=== PATIENT | female | born 1960 | race Caucasian/White ===

== ENCOUNTER 2024-02-15 10:31 | Inpatient (IN) | payer OTHER, SELFPAY ==
[2024-02-15] VITALS (8 sets, daily range): BP systolic 126–178; BP diastolic 71–106; BMI 23.0; BMI 22.3
--- NOTE | 2024-02-15 03:42 | ED.GENMED ---
History of Present Illness
General
Chief Complaint: Flank Pain
Source: patient
Exam Limitations: none
Time Seen by Provider: 02/15/24 03:33
Nursing documentation reviewed up to this point in time: agreed with
Travel History
Have you had any contact with someone who has COVID-19?: No
Do you have any symptoms of coronavirus? Fever > 100 degrees, chills, cough, shortness of breath, sore throat, loss of taste or smell, muscle aches, or headache?: No
History of Present Illness
History of Present Illness:
This is a 63-year-old woman with history of hypertension, SVT, ulcerative colitis maintained on Humira every 2 weeks. History of osteoporosis maintained on every 6-month Prolia as well as history of seasonal allergies.
She complains of 2-week history of bilateral posterior lower flank pain that is worse at nighttime, seems to improve during the day.
She has had no UTI symptoms but was started on a course of Cipro 2 weeks ago for presumed UTI. She states she stopped the Cipro with onset of bilateral hand itching and urine culture returned negative for UTI.
She has continued with bilateral low back pain, nonradiating that has been much worse over the past 2 nights with inability to sleep. She denies fever nor chills, no nausea nor vomiting, no diarrhea or constipation.
No history of similar episodes in the past. She denies weakness or numbness, no leg pain, no rash.
No recent injury nor fall.
She states she had blood work done on , February 12 and was notified by her PCP that blood work was unremarkable. An ultrasound is scheduled for March 03.
She has been taking Tylenol arthritis for pain as well as occasional doses of Aleve. Tonight pain was much worse prompting ED visit.
Past History
Past History
ED Past Medical History: Arrthythmia (SVT), HTN, Other (Ulcerative colitis maintained on Humira every 2 weeks. Seasonal allergies, oral/herpes labialis maintained on daily Valtrex suppressive therapy.) and Other (Osteoporosis)
ED Past Surgical History: Orthopedic (ORIF right shoulder, bunionectomy) and Other (Inguinal hernia repair)
Social History
Tobacco: Non-smoker
Alcohol: None
Personal:
Living: with family
Employment: Employed
Family History
Family History: Other (Nonremarkable)
Phy Exam
Physical Exam
Physical Exam:
GENERAL: 63-year-old woman appears her stated age, awake and alert, appears in mild distress related to pain. Easily communicative. is accompanying.
EYE: anicteric
NECK: Supple, nontender, no meningismus, no significant adenopathy.
ENT: oral mucosa is moist. No rhinorrhea.
CARDIAC: Regular rate and rhythm. no murmur.
LUNGS: Clear breath sounds bilaterally, no acute respiratory distress, no wheezes/rales/rhonchi
ABDOMEN: Soft, nondistended, without focal tenderness, no r/g, no cvat. normoactive BS.
BACK: Mild to moderate tenderness bilateral thoracolumbar region. No midline bony tenderness.
NEUROLOGICAL: Alert and oriented x3, no focal neuro deficits. Gait is briones and steady.
SKIN: Warm and dry, normal color, skin intact. No rash.
MUSCULOSKELETAL: No C/C/E. peripheral pulses are full and equal b/l. No palpable tenderness.
PSYCH: Normal and appropriate interaction.
Course
Orders/Labs/Results
Orders:
Orders
02/15/24 03:40
CT Abd/pel Without Iv Or Oral Urgent
Comment:
Reason For Exam: R flank pain x 2 weeks, worse x 2 nights
02/15/24 03:45
Comprehensive Metabolic Panel Urgent
Lipase Urgent
Comment: ADD ON
Urinalysis Reflex To Culture Urgent
Date Specimen was Collected: 02/15/24
Time Specimen was Collected: 03:44
02/15/24 06:05
Ketorolac [Toradol] 30 mg .ROUTE .[facility]
Ketorolac [Toradol] 30 mg IV NOW STA
02/15/24 06:06
Add On- LAB Urgent
Tests Added?: lipase
02/15/24 06:13
CBC/With Diff [Complete Blood Count/With Diff] Urgent
02/15/24 06:20
CT Abd/pelvis W Iv Cont Urgent
Comment:
Reason For Exam: b/l back pain, adenopathy on plain CT
Abnormal Lab Results
02/15/24 02/15/24
03:45 06:13
RBC 3.77 L 10^6/uL
(4.20-5.40)
Hct 35.3 L %
(37.0-47.0)
MCH 33.4 H pg
(27.0-31.0)
Absolute Monos (auto) 0.9 H 10^3/uL
(0.1-0.6)
Monocytes % 11.8 H %
(1.7-9.3)
BUN 18 H mg/dl
(7-17)
Glucose 115 H mg/dl
(70-99)
Lipase 1009 H* U/L
(23-300)
02/15/24 06:13
02/15/24 03:45
Vital Signs
Initial and Last Documented VS:
Initial Vital Signs
Temp Pulse Resp BP Pulse Ox
98.2 F 82 20 178/106 98
02/15/24 03:24 02/15/24 03:24 02/15/24 03:24 02/15/24 03:24 02/15/24 03:24
Last Documented Vital Signs
Temp Pulse Resp BP Pulse Ox
98.2 F 78 14 144/87 98
02/15/24 03:24 02/15/24 06:01 02/15/24 06:01 02/15/24 06:01 02/15/24 06:01
MDM/Problems Addressed
Differential Diagnosis Includes:
Concern for thoracolumbar musculoskeletal pain, other consideration is renal colic. Less likely pyelonephritis especially with history of negative urine culture 2 weeks ago.
Will check CT
Will check U/A and CMP
Less likely ulcerative colitis related as patient abdomen is soft and nontender, she has had no GI symptoms.
Chronic conditions affecting care: HTN, Immunosuppressed and Other (Ulcerative colitis, chronically maintained on immunosuppressants)
*Radiology
Radiology exam reviewed: radiology read reviewed ( CT of the abdomen pelvis without contrast shows distended gallbladder with surrounding fluid versus gallbladder wall edema. There is innumerable oh hepatis as well as retroperitoneal lymph nodes
suspicious for metastatic disease.)
*Pulse Oximetry
Patient hypoxic: no
*Critical Care Note
Total Time (30-74mins, 75-104mins- exclusive of procedures): Not Applicable
Update Note
Update Note:
CMP is unremarkable as is urinalysis. Patient continues with moderate back pain thus we will trial an IV dose of Toradol.
Initial plain CT shows concern for possible cholecystitis with distended gallbladder with surrounding fluid versus gallbladder wall edema, there is also note of innumerable oh hepatis as well as retroperitoneal lymph nodes, suspicious for
metastatic disease. Neurologist recommends repeating images with IV contrast. There is no obstructing renal stone, appendix is normal, no bowel obstruction nor diverticulitis. Abdominal aorta is normal caliber.
Complete metabolic panel is unremarkable but will check lipase and will plan for CT abdomen pelvis with IV contrast.
Patient does note intermittent upper abdominal discomfort but no pain with meals, she has had no nausea nor vomiting.
02/15/2024 0729 AM
Lipase markedly elevated 1009. All other LFTs within normal limits.
CT with IV contrast again demonstrates innumerable enlarged abdominal and retroperitoneal lymph nodes, concerning for metastatic disease. There is also note of gallbladder inflammation, concerning for cholecystitis.
With intermittent episodes over the past 2 weeks, worse at nighttime and especially over the past 2 nights concern for gallstone pancreatitis, acute pancreatitis.
Will admit to hospitalist service, IV fluids, IV pain medication, IV antibiotics for cholecystitis.
Case discussed with hospitalist and request consult to GI.
GI has been notified via [place] text.
ED Attending Note
-
Portions of this chart may have been created with voice recognition software.� Occasional wrong word or��sound alike� substitutions may have occurred due to the inherent limitations of voice recognition software.
Discharge Plan
Departure
Patient Disposition: Admit
Date of Disposition: 02/15/24
Time of Disposition: 07:21
Admit to: Med/Surg
Admit to doctor: Keyla
Presentation/result/management discussed w/ accepting MD/DO: Hospitalist
Condition: Fair
Discharge Problem:
Acute gallstone pancreatitis, Acute cholecystitis, Abdominal lymphadenopathy
Prescriptions:
No Action
multivitamin Tablet
1 tab PO DAILY
valacyclovir 500 mg Tablet
500 mg PO DAILY
fiber Tablet
1 tab PO DAILY
metoprolol succinate 25 mg Tablet Extended Release 24 Hr
25 mg PO HS
loratadine [Claritin] 10 mg Tablet
10 mg PO DAILY
Humira 40 mg/0.8 mL Syringe Kit
40 mg SC Q2W
cholecalciferol (vitamin D3) [Vitamin D3] 125 mcg (5,000 unit) Tablet
125 mcg PO DAILY
Prolia 60 mg/mL Syringe
60 mg SC [id number]
PreserVision AREDS
1 cap PO DAILY
Referrals:
Padmaaj Harvey DO [Family Provider] -
Interventions
Interventions:
*Risk Screen - Suicide Last Done: 02/15/24 03:24
*General Assessment Last Done: 02/15/24 03:24
*Neglect/Abuse Screening Last Done: 02/15/24 03:24
ED- Fall Risk Assessment Last Done: 02/15/24 03:24
*ED COVID-19 Vaccine History Last Done: 02/15/24 03:24
LM-Hortru-Dehoqmyuso Assessment Last Done: 02/15/24 03:52
ED-Female Genitourinary Assessment Last Done: 02/15/24 03:52
Discharge Date and Time
Print Language: CYPRIOT
[2024-02-15 04:00] LABS: Urine Albumin Trace (Neg - Trace); Urine Bilirubin Negative (Negative); Urine Character Clear (Clear); Urine Color Yellow; Urine Glucose Negative (Negative); Urine Ketone Negative (Negative); Urine Leukocyte Negative (Negative); Urine Nitrite Negative (Negative); Urine Occult Blood Negative (Negative); Urine Urobilinogen Negative (Neg - 1+)
[2024-02-15 04:10] LABS: ALT (SGPT) 18 U/L (0-35); AST (SGOT) 30 U/L (14-36); Alkaline Phosphatase 78 U/L (38-126); Blood Urea Nitrogen 18 mg/dl (7-17); Calcium 9.8 mg/dl (8.4-10.2); Carbon Dioxide 26 mmol/L (22-30); Chloride 107 mmol/L (98-107); Estimated Creatinine Clearance 88 ml/min; Glucose 115 mg/dl (70-99); Sodium 139 mmol/L (135-145); Total Bilirubin 0.4 mg/dl (0.2-1.3); Total Protein 6.7 g/dl (6.3-8.2); eGFR > 60.00
[2024-02-15] MEDS: TORADOL 30 MG IV (06:13)
[2024-02-15 06:22] LABS: % Basophils 0.9 % (0-2); % Eosinophils 5.2 % (0-6); % Immature Granulocytes 0.1 % (0-0.5); % Lymphocytes 27.5 % (20.5-51.1); % Monocytes 11.8 % (1.7-9.3); % Neutrophils 54.5 % (42.2-75.2); Absolute Basophils 0.1 10^3/uL (0-0.2); Absolute Eosinophils 0.4 10^3/uL (0-0.7); Absolute Lymphocytes 2.1 10^3/uL (1.2-3.4); Absolute Monocytes 0.9 10^3/uL (0.1-0.6); Absolute Neutrophils 4.1 10^3/uL (1.4-6.5); Hematocrit 35.3 % (37.0-47.0); Hemoglobin 12.6 g/dL (12.0-16.0); Mean Corp Hgb Conc. 35.7 g/dL (33.0-37.0); Mean Corpuscular Hgb 33.4 pg (27.0-31.0); Mean Corpuscular Volume 93.6 fL (81.0-99.0); Mean Platelet Volume 8.6 fL (7.4-10.4); Nucleated Red Blood Cells % 0 %; Platelet Count 383 10^3/uL (130-400); Red Blood Cell Count 3.77 10^6/uL (4.20-5.40); Red Cell Dist. Width 11.8 % (11.5-14.5); White Blood Cell Count 7.5 10^3/uL (4.8-10.8)
[2024-02-15 06:40] LABS: Lipase 1009 U/L (23-300)
[2024-02-15] MEDS: NSS 1000 IV (07:53)
[2024-02-15] MEDS: MORPHINE SULFATE 2 MG IV (07:53)
[2024-02-15] MEDS: CEFOTAN 2000 MG IV (07:56)
--- NOTE | 2024-02-15 10:25 | HPS.HSE ---
Family Physician
-
Family Physician: Padmaja Harvey
Chief Complaint
-
Abdominal pain
History of Present Illness
63 y/o F with PMHx:
Ulcerative colitis
SVT
Essential hypertension
who p/w CC abd pain. The patient has had abdominal pain for 2 weeks. Initially it was in the right and left lower quadrants radiating to the back. More recently it has been epigastric and radiating through the upper quadrants to the back. She
has not had no associated vomiting, diarrhea, fevers, melena, hematochezia. She has had some chills. She reports a 10 pound unintentional weight loss in the last month. She also reports that she gets short of breath climbing a flight of stairs
but this has been going on for a while and is not acute. Denies headache, visual symptoms, neck stiffness, rash, dysuria, focal neurological deficits. Denies chest pain, palpitations.
Medical History
Past Medical History
Past Medical History: Reports Other (as per HPI)
Past Surgical History: Reports Other (N/A)
Social History
Tobacco: Non-smoker
Alcohol: Occasional
Drug: None
Family History
Family History: Not pertinent
Allergies / Home Medications
Allergies reflects when Allergies were last updated in [facility].
Home Medications with original date entered in [facility]
Allergy/Medication List:
Allergies
Allergy/AdvReac Type Severity Reaction Status Date / Time
ciprofloxacin [From Cipro] Allergy Itching Verified 02/15/24 03:24
Home Medications
PreserVision AREDS 1 cap PO DAILY 02/15/24
adalimumab 40 mg/0.8 mL subcutaneous syringe kit (Humira) 40 mg SC Q2W 02/15/24
cholecalciferol (vitamin D3) 125 mcg (5,000 unit) tablet (Vitamin D3) 125 mcg PO DAILY 02/15/24
denosumab 60 mg/mL subcutaneous syringe (Prolia) 60 mg SC [id number] 02/15/24
fiber 1 tab PO DAILY 02/15/24
loratadine 10 mg tablet (Claritin) 10 mg PO DAILY 02/15/24
metoprolol succinate 25 mg tablet,extended release 24 hr 25 mg PO HS 02/15/24
multivitamin 1 tab PO DAILY 02/15/24
valacyclovir 500 mg tablet 500 mg PO DAILY 02/15/24
Review of Systems
-
History Source: Patient
A 12 point ROS was completed and negative except as noted: Yes
Physical Exam
Vital Signs
Vital Signs
Temp Pulse Resp BP Pulse Ox
98.2 F 78 16 141/90 98
02/15/24 03:24 02/15/24 08:38 02/15/24 08:38 02/15/24 08:38 02/15/24 08:38
Physical Exam
General: Other (.)
Laboratory Results
-
02/15/24 06:13
02/15/24 03:45
Laboratory Results
Total Bilirubin 0.4 mg/dl (0.2-1.3) 02/15/24 03:45
AST 30 U/L (14-36) 02/15/24 03:45
ALT 18 U/L (0-35) 02/15/24 03:45
Alkaline Phosphatase 78 U/L (38-126) 02/15/24 03:45
Lipase 1009 U/L (23-300) H* 02/15/24 03:45
Impression/Plan
-
Gen: NAD, AAOx3.
Eyes: EOMI, PERRLA, no scleral icterus.
Neck: supple.
CV: RRR, +S1/S2, no m/r/g.
Resp: CTAB, no rales, wheezes, or rhonchi.
Abd: +BS, soft, LUQ TTP, ND
Skin: No rashes.
Neuro: CN 2-12 intact, non-focal.
Psych: Normal mood and affect.
CT A/P w/IV (no PO): There is extensive mesenteric and retroperitoneal lymphadenopathy worrisome for malignancy such as lymphoma or metastasis with hazy stranding throughout the mesentery. There is low-density gallbladder wall thickening which is 1
cm suggesting cholecystitis. There are no obstructing renal or ureteral calculi and there is no hydronephrosis or hydroureter there are 7 mm nonobstructing calculus in the lower pole of the right kidney and right-sided renal cysts measuring up to
3cm.
Abdominal pain:
-doubt acute cholecystitis with normal liver function tests, no right upper quadrant tenderness to palpation, no leukocytosis, no fever
-acute pancreatitis, LR @ 200cc/hr, check MRI abd/MRCP, check lipase in AM
-pt needs CT A/P with PO contrast. As pt had IV contrast today will check CT C/A/P with PO and IV contrast in AM.
-NPO except meds/sips
-further work up to be determined by results of imaging ordered.
-pain control (IV dilaudid PRN)
Other problems:
UC, holding home meds
Essential HTN/SVT: cont BB
FULL/Lovenox
[2024-02-15] MEDS: DILAUDID 0.5 MG IV ×3 (13:30→21:21)
[2024-02-15] MEDS: LR 1000 IV ×2 (13:35→20:04)
[2024-02-15] MEDS: LOVENOX 40 MG SC (17:22)
[2024-02-15] MEDS: TYLENOL 650 MG PO (20:04)
[2024-02-15] MEDS: ZOFRAN 4 MG IV (21:21)
[2024-02-15] MEDS: OCUFLOX 1 DROP OPHTH (21:24)
[2024-02-15] MEDS: TOPROL XL 25 MG PO (21:25)
[2024-02-16] MEDS: TYLENOL 650 MG PO (03:42)
[2024-02-16] MEDS: LR 1000 IV ×3 (06:21→12:40)
[2024-02-16 06:25] LABS: Hematocrit 34.5 % (37.0-47.0); Hemoglobin 12.1 g/dL (12.0-16.0); Mean Corp Hgb Conc. 35.1 g/dL (33.0-37.0); Mean Corpuscular Hgb 33.6 pg (27.0-31.0); Mean Corpuscular Volume 95.8 fL (81.0-99.0); Mean Platelet Volume 9.2 fL (7.4-10.4); Platelet Count 395 10^3/uL (130-400); Red Cell Dist. Width 11.8 % (11.5-14.5); White Blood Cell Count 6.4 10^3/uL (4.8-10.8)
[2024-02-16] MEDS: ZOFRAN 4 MG IV ×2 (06:25→11:40)
[2024-02-16 06:58] LABS: ALT (SGPT) 16 U/L (0-35); AST (SGOT) 41 U/L (14-36); Albumin 3.8 g/dl (3.5-5.0); Alkaline Phosphatase 71 U/L (38-126); Blood Urea Nitrogen 11 mg/dl (7-17); Calcium 9.1 mg/dl (8.4-10.2); Carbon Dioxide 23 mmol/L (22-30); Chloride 105 mmol/L (98-107); Estimated Creatinine Clearance 88 ml/min; Glucose 73 mg/dl (70-99); Lipase 228 U/L (23-300); Potassium 4.1 mmol/L (3.5-5.1); Sodium 134 mmol/L (135-145); Total Bilirubin 0.4 mg/dl (0.2-1.3); Total Protein 6.3 g/dl (6.3-8.2); eGFR > 60.00
[2024-02-16 08:02] VITALS: BP 143/75
[2024-02-16] MEDS: THERAGRAN 1 TABLET PO (08:15)
[2024-02-16] MEDS: OCUFLOX 1 DROP OPHTH ×3 (08:15→18:01)
[2024-02-16] MEDS: CLARITIN 10 MG PO (08:15)
[2024-02-16] MEDS: VALTREX 500 MG PO (08:15)
[2024-02-16] MEDS: OCUVITE SOFTGEL 1 CAP PO (08:15)
[2024-02-16] MEDS: VITAMIN D3 (cholecalciferol) 125 MCG PO (08:15)
[2024-02-16] MEDS: OMNIPAQUE 50 ML PO (08:22)
--- NOTE | 2024-02-16 09:09 | CM ---
Patient seen at bedside with present. Patient states that she lives in a 3 story home with no DME. Patient has been independent of ADL's and IADL's. Patient indicated that she has no past need for VN or supports. Patient PCP is Dr. Harvey
and she uses the [facility] in [place]. Patient does not anticipate any needs at discharge, patient signed up for Medicare part A but has yet to receive card. [facility] reviewed and provided for patient to read. CM will continue to follow for discharge
planning needs.
Plan; home with no needs anticipated.
[2024-02-16] MEDS: MORPHINE SULFATE 2 MG IV ×2 (14:11→19:47)
[2024-02-16 15:40] VITALS: BP 144/83
--- NOTE | 2024-02-16 16:26 | W.PN.HOSP.TC ---
Addendum entered and electronically signed by Alec Jones MD 02/16/24 17:51:
As per discussion with Dr. David Leo, [id number]: unless the lactate is very high hold off on the CTA. In the meantime, NPO except for ice chips and sips of clears to give patient some bowel rest. If patient looks worse tomorrow then a
diagnostic laparoscopy could be done, and some lymph nodes potentially could be obtained for tissue pathology.
Addendum entered and electronically signed by Alec Jones MD 02/16/24 17:00:
Clear Liquid Diet pending GI and surgery evaluation given possible colitis on imaging
Original Note:
Today's Communication/Plan
-
NPO after midnight for biopsy of lymph nodes with EUS tomorrow
Colitis on imaging -- will cover with Rocephin and Flagyl
Asked surgery and GI to take a look and see whether this may be ischemic colitis
Assessment / Plan
Assessment / Plan
Physical Exam
Gen: NAD, AAOx3
HEENT: Normocephalic
Neck: Supple
CV: RRR, +S1/S2, no m/r/g.
Resp: CTAB
Abd: +BS, soft, LUQ TTP, ND
Skin: Warm. Dry.
Neuro: Cranial Nerves 2 through 12 intact, non-focal.
Psych: Calm

Assessment/Plan
63 y/o F with past medical history of ulcerative colitis, SVT, and essential hypertension who presented reporting abdominal pain of a 2-week duration. Initially it was in the right and left lower quadrants radiating to the back. More recently it
had been epigastric and radiating through the upper quadrants to the back. She had not had any associated vomiting, diarrhea, fevers, melena or hematochezia. She had some chills. She reports a 10 pound unintentional weight loss in the last month.
She also reported chronic shortness of breath.
CT A/P w/IV (no PO): There is extensive mesenteric and retroperitoneal lymphadenopathy worrisome for malignancy such as lymphoma or metastasis with hazy stranding throughout the mesentery. There is low-density gallbladder wall thickening which is 1
cm suggesting cholecystitis. There are no obstructing renal or ureteral calculi and there is no hydronephrosis or hydroureter there are 7 mm nonobstructing calculus in the lower pole of the right kidney and right-sided renal cysts measuring up to
3cm.
Abdominal pain:
Extensive Abdominal Lymphadenopathy
-doubt acute cholecystitis with normal liver function tests, no right upper quadrant tenderness to palpation, no leukocytosis, no fever
-No acute pancreatitis on imaging -- but lipase was significantly elevated and patient did have abdominal pain on the left -- so LR IV fluids were given initially @ 200 cc/hr
-A repeat Lipase was previously ordered and has come down to normal
-Imaging so far including MRI Abdomen has shown no evidence of pancreatitis
-Consulted GI and discussed case with them: per GI reasonable to reduce the rate of IV fluids and start a low fat, low residue diet
-NPO after midnight -- Dr. Lin of GI mentioned that she will ask Dr. Connor (advance endoscopist) to review imaging to see if Dr. Connor could do EUS and biopsy any of the lymph nodes on 02/17/24
-Consulted oncology, recommendations appreciated
-pain control (IV dilaudid PRN)
Colitis on CT imaging
-Start Rocephin and Flagyl for now
-Consulted GI and colorectal about this being possibly ischemic vs. infectious vs. other -- they will take a look
Right Thyroid Lab Mass
-Seen on imaging this admission
Small Ascites
-Seen on imaging this admission
-Monitor for worsening ascites and need for possible paracentesis
Nonobstructing Kidney Stone
Renal Cyst
-Seen on CT imaging
Other problems:
UC, holding home medications
Essential HTN/SVT: cont BB
FULL/Lovenox
Anticipated Discharge: 24 - 48 hours
Subjective/Interval History
-
Date of Service: February 16, 2024
Patient was seen and examined. She reported she has some abdominal discomfort, had nausea/vomiting earlier this morning.
Objective Data
-
Labs:
Laboratory Results
02/16/24
04:55
WBC 6.4
Hgb 12.1
Hct 34.5 L
Plt Count 395
Sodium 134 L
Potassium 4.1
Chloride 105
Carbon Dioxide 23
BUN 11
Creatinine 0.5 L
Glucose 73
Calcium 9.1
Total Bilirubin 0.4
AST 41 H
ALT 16
Alkaline Phosphatase 71
Vital Signs:
Vital Signs
Temp Pulse Resp BP Pulse Ox
98.4 F 92 18 144/83 97
02/16/24 15:40 02/16/24 15:40 02/16/24 15:40 02/16/24 15:40 02/16/24 15:40
I&O
02/15/24 02/16/24 02/17/24
06:59 06:59 06:59
Intake Total 2400 / 2400
Balance 2400 / 2400
[2024-02-16 17:32] LABS: Lactic Acid 1.3 mmol/L (0.7-2.0)
[2024-02-16] MEDS: FLAGYL 500 MG 100 IV (17:58)
[2024-02-16] MEDS: ROCEPHIN 2000 MG IV (17:59)
[2024-02-16] MEDS: STERILE WATER FOR INJECTION 20 ML IV (17:59)
[2024-02-16] MEDS: LOVENOX 40 MG SC (17:59)
[2024-02-16] MEDS: FLUSH (NSS) 1 FLUSH IV (18:01)
[2024-02-16] MEDS: FLUSH (NSS) IV (19:43)
[2024-02-16] MEDS: ATIVAN 0.25 MG PO (21:07)
[2024-02-16] MEDS: OCUFLOX 2 DROP OPHTH (21:08)
[2024-02-16] MEDS: MELATONIN 3 MG PO (21:08)
[2024-02-16] MEDS: TOPROL XL 25 MG PO (21:09)
[2024-02-16 22:48] VITALS: BP 140/80
[2024-02-17] MEDS: DILAUDID 0.5 MG IV ×4 (00:46→20:50)
[2024-02-17] MEDS: LR 1000 IV (02:28)
[2024-02-17] MEDS: FLAGYL 500 MG 100 IV ×3 (02:29→18:28)
[2024-02-17 07:01] LABS: Lipase 97 U/L (23-300)
[2024-02-17 07:19] VITALS: BP 149/93
[2024-02-17] MEDS: OCUFLOX 2 DROP OPHTH ×4 (07:51→21:03)
[2024-02-17] MEDS: CLARITIN 10 MG PO (07:51)
[2024-02-17] MEDS: VALTREX 500 MG PO (07:51)
[2024-02-17] MEDS: THERAGRAN 1 TABLET PO (07:51)
[2024-02-17] MEDS: VITAMIN D3 (cholecalciferol) 125 MCG PO (07:51)
--- NOTE | 2024-02-17 08:09 | CON.GI ---
Addendum entered and electronically signed by Maisha Trinidad NP 02/17/24 13:06:
Left a message to get a call back from [facility] as per the pt request.
Addendum entered and electronically signed by Gina Aragon Do, MD 02/17/24 10:05:
I saw and examined the patient.
The GENERAL INTERNAL MEDICINE DOCTOR's note was reviewed and I agree with the note.
Comment: Padmaja is a 63yo W with h/o of UC diagnosed in her 30s on Humira (for >10yrs) and remote melanoma (managed by Dr Hurst) who was admitted for diffuse abd pain x2 wks. She denies any triggers such as new meds, change in diet or ETOH
intake. Exam VSS, diffuse epigastric TPP without guarding or rebound. Hypoactive BS. Thin appearing W. Labs elevated lipase of 1000 with relatively flat LFTs. She also had several imaging done CT x2 and MRI of abdomen most notable for possible
cholecystitis, diffuse extensive RP lymphadenopathy and L sided colonic wall thickening. No prior EGD. Last Cscope 2022 per pt in remission and one polyp. recall [address] Christiansen at [facility].
Impression
- Generalized abd pain x2 wks
- Diffuse retroperitoneal lymphadenopathy and GBWT with pericholecystic fluid
- Elevated lipase
Suspect chemical pancreatitis, CT and MRI with normal appearing pancreas
- H/o UC diagnosed in her 30s
Reports remission on Humira for >10yrs
- L sided colonic wall thickening
- HTN
- H/o Melanoma
Follows with Dr Hurst
Recommendations
- C/w NPO
- Check labs today CBC, CMP and INR
- Plan for EUS with Dr Connor later this afternoon. Pending on EUS may consider ERCP. Case d/w him and images were reviewed
- C/w abx
- Appreciate surgical recs
- Await oncology recs
Plan of care d/w pt, RN and hospitalist. Will follow with you
Original Note:
Consultation
-
Date/Time Consultation Requested: 02/16/2024 @ 10:24
Date/Time Consultation Performed: 02/17/2024 @ 08:15
Requesting Provider: Dr. Jones
Performing Provider: MEGAN Sales; Dr. Gina Lin
Reason for Consultation: Acute Abdominal Pain, 2 weeks history, only reason is lymphadenopathy?
Medical History
Chief Complaint / HPI
Chief Complaint: abdominal pain
History of Present Illness:
The patient is a 63-year-old female with a past medical history significant for longstanding ulcerative colitis on Humira, hypertension, history of SVT, osteoporosis on Prolia, melanoma in situ on right arm which was removed and localized, who
presented to the emergency room on 02/15/2024 with complaints of abdominal pain. We are being asked to evaluate for the presenting symptoms with CT findings with extensive lymphadenopathy. The patient reports that she has been having progressive
pain over the past 2 weeks. She notes that she did have a recent sinus infection and pinkeye and was placed on Augmentin outpatient. Shortly after she did develop this pain in her back that radiated to the front, feeling similar to a tight girdle.
The pain has since been anywhere throughout her abdomen at times. She tried Tylenol and Aleve with no improvement. She notes that the pain did progressively become worse, affecting her sleep over the weekend, therefore warranting ER evaluation.
She has been losing weight as well over the past few weeks about 10 pounds. She does admit to chills but denies fevers. She reports that she does have regular bowel movements and denies any melena or hematochezia. She does follow with Dr. Linton
Kuldip from [facility] for her ulcerative colitis which she has been diagnosed with over 20 years ago. She notes her disease has been well-controlled on Humira. Her last colonoscopy was done in late 2022 which she believes she had some polyps
removed otherwise her ulcerative colitis has been in remission. She denies any recent hospitalizations or need for steroids for flares. She does admit to some mild shortness of breath on exertion which she had cardiac workup for which was
unrevealing. She follows with Dr. Sanches for a history of SVT controlled on metoprolol.. She otherwise denies any chest pain, nausea, vomiting, dysphagia, odynophagia, or urinary symptoms. She did note that she was on a short course of Cipro
as well for a urinary tract infection after her course of Augmentin. She denies any significant family history of GI cancers or disorders. She denies any regular use of NSAIDs or blood thinners. She reports occasional alcohol use with wine or
beer with several drinks weekly. She is a former smoker of 1 pack/day. Upon ER evaluation, she underwent CT imaging of the abdomen and pelvis which showed extensive lymphadenopathy in the mesenteric and retroperitoneal area along with low-density
gallbladder wall thickening suggesting possible cholecystitis, with other nonurgent findings as noted below. A repeat CT was done with chest imaging as well showing similar findings as previous CT along with some concern for possible colitis with
mild wall thickening and pericolonic inflammatory stranding of the descending and sigmoid colon, a small amount of ascites in the pelvis, and a 13 mm low-density mass in the right lobe of the thyroid (other findings as noted below).An MRI of the
abdomen was also done showing extensive component upper abdominal lymphadenopathy highly suspicious for neoplasm o with prominent pericholecystic fluid and periportal edema likely reactive with no no evidence for acute cholecystitis as per
radiology. Pertinent lab findings on admission include lipase 1009, BUN 18, creatinine 0.6, sodium 139, potassium 4.0, lactic acid 1.3, WBC 7.5, hemoglobin 12.6, and LFTs within normal limits. She was made n.p.o., placed on IV antibiotics with
ceftriaxone and Flagyl, and admitted for further evaluation by GI, general surgery, and colorectal surgery.
Past Medical History
Past Medical History: Arrhythmias (SVT), HTN and Other (Ulcerative colitis on Humira, osteoporosis)
Past Surgical History: Orthopedic (Right humerus fracture with surgical repair requiring screws and plate) and Other (Bilateral bunionectomy, hernia repair)
Social History
Tobacco: Former Smoker (Previously 1 pack/day)
Alcohol: Occasional (Several drinks of beer or wine weekly)
Drug: None
Personal:
Living: With Family
Family History
Family History: Reviewed & Not Pertinent
Allergies / Home Medications
Allergy/AdvReac Type Severity Reaction Status Date / Time
ciprofloxacin [From Cipro] Allergy Itching Verified 02/15/24 03:24
�Medication �Instructions �Recorded
acetaminophen 650 mg 1,300 mg PO BIDPRN PRN mild pain 02/15/24
tablet,extended release
adalimumab 40 mg/0.4 mL 40 mg SC Q2W Ulcerative colitis 02/15/24
subcutaneous pen kit (Humira(CF)
Pen)
cholecalciferol (vitamin D3) 125 125 mcg PO DAILY Supplement 02/15/24
mcg (5,000 unit) tablet (Vitamin
D3)
denosumab 60 mg/mL subcutaneous 60 mg SC [id number] osteoporosis 02/15/24
syringe (Prolia)
inulin-sorbitol 2 gram chewable 1 tab PO DAILY Supplement 02/15/24
tablet
loratadine 10 mg tablet (Claritin) 10 mg PO DAILY Allergies 02/15/24
metoprolol succinate 25 mg 25 mg PO HS Blood Pressure 02/15/24
tablet,extended release 24 hr
multivitamin 1 tab PO DAILY Supplement 02/15/24
naproxen sodium 220 mg tablet 220 mg PO DAILYPRN PRN mild pain 02/15/24
(Aleve)
ofloxacin 1 drp BOTH EYES TID CONJUNCTIVITIS 02/15/24
valacyclovir 500 mg tablet 500 mg PO DAILY anti-viral 02/15/24
vitamins A,C,I-avoz-kcvhvz 4,296 1 cap PO DAILY Supplement 02/15/24
mcg-226 mg-90 mg capsule
(PreserVision AREDS)
Review of Systems
-
History Source: Patient
Constitutional: Reports Weight Loss, Sleep Disturbance and Chills
EENT: Reports No Symptoms
Respiratory: Reports Trouble Breathing (Chronic dyspnea on exertion)
Cardiac: Reports No Symptoms
Abdomen/GI: Reports Abdominal Pain
: Reports No Symptoms
Musculoskeletal: Reports Other (Back pain)
Skin: Reports No Symptoms
Neurological: Reports No Symptoms
Vital Signs
Temp Pulse Resp BP Pulse Ox
98.0 F 96 16 140/80 94
02/16/24 22:48 02/16/24 22:48 02/16/24 22:48 02/16/24 22:48 02/16/24 22:48
Physical Exam
Exam
General: Well Developed, Well Nourished and No Apparent Distress
HEENT: Normocephalic, Anicteric and Atraumatic
Respiratory: Clear
Cardiac: S1/S2 and Regular Rhythm
Breast: Deferred by me
GI: Soft, Non Distended, Normal Bowel Sounds and Tender (Left upper and left lower quadrant abdominal tenderness with palpation, no appreciated palpable masses)
Rectal: Deferred by Provider
Musculoskeletal: No Edema
Skin: Warm and Dry
Neuro: Awake, Alert and Oriented
Psych: Calm
Results
WBC 6.4 10^3/uL (4.8-10.8) 02/16/24 04:55
Hgb 12.1 g/dL (12.0-16.0) 02/16/24 04:55
Hct 34.5 % (37.0-47.0) L 02/16/24 04:55
MCV 95.8 fL (81.0-99.0) 02/16/24 04:55
Plt Count 395 10^3/uL (130-400) 02/16/24 04:55
Absolute Neuts (auto) 4.1 10^3/uL (1.4-6.5) 02/15/24 06:13
Sodium 134 mmol/L (135-145) L 02/16/24 04:55
Potassium 4.1 mmol/L (3.5-5.1) 02/16/24 04:55
Chloride 105 mmol/L (98-107) 04/14/24 04:55
Carbon Dioxide 23 mmol/L (22-30) 02/16/24 04:55
BUN 11 mg/dl (7-17) 02/16/24 04:55
Creatinine 0.5 mg/dL (0.6-1.0) L 02/16/24 04:55
Calcium 9.1 mg/dl (8.4-10.2) 02/16/24 04:55
Total Bilirubin 0.4 mg/dl (0.2-1.3) 02/16/24 04:55
AST 41 U/L (14-36) H 02/16/24 04:55
ALT 16 U/L (0-35) 02/16/24 04:55
Alkaline Phosphatase 71 U/L (38-126) 02/16/24 04:55
Lipase 97 U/L (23-300) 02/17/24 05:39
Diagnostic Image Results:
02/15/24 CT A/P w/ IV contrast: IMPRESSION:
'1).There is extensive mesenteric and retroperitoneal lymphadenopathy worrisome for malignancy such as lymphoma or metastasis with hazy stranding throughout the mesentery.
2). There is low-density gallbladder wall thickening which is 1 cm suggesting cholecystitis
3). There are no obstructing renal or ureteral calculi and there is no hydronephrosis or hydroureter there are 7 mm nonobstructing calculus in the lower pole of the right kidney and there is 3 cm right renal cyst
4). Degenerative disc disease at L5-S1.
5). There is probably no significant percent compression fracture of the superior endplate of T11.'
02/15/24 MRI Abdomen w/ and w/o contrast: IMPRESSION: 'Extensive confluent upper abdominal lymphadenopathy highly suspicious for neoplasm such as lymphoma. Prominent pericholecystic fluid and periportal edema, likely reactive. No cholelithiasis or
choledocholithiasis. No convincing evidence for acute cholecystitis.'
02/16/24 CT C/A/P w/IV contrast:
'1). There is extensive mesenteric, retroperitoneal and right retrocrural lymphadenopathy suggesting malignancies such as may be seen with lymphoma.
2). There is moderate low-density gallbladder wall thickening suggesting cholecystitis
3). There is wall thickening and pericolonic inflammatory stranding descending and sigmoid colon suggesting colitis
4). There is a small amount of ascites in the pelvis.
5). There is 7 mm nonobstructing calculus in the lower pole of the right kidney
6). There are right-sided renal cysts measuring up to 3 cm
7).There is a 13 mm low-density 13 Hounsfield unit) mass in the right lobe of the thyroid.
This mass may be benign or malignant and, could be best further evaluated and followed with ultrasound.
8). Degenerative disc disease at L5-S1
9). Probably old 10% compression fracture of the superior endplate of T11'
Prior GI Procedures:
EGD: none
Colonoscopy: [address] Christiansen at [place], some polyps removed, remission of UC per pt (record not available to me)
Assessment / Plan
-
The patient is a 63-year-old female with a past medical history significant for longstanding ulcerative colitis on Humira, hypertension, history of SVT, osteoporosis on Prolia, melanoma in situ on right arm which was removed and localized, who
presented to the emergency room on 02/15/2024 with complaints of abdominal pain. We are being asked to evaluate for the presenting symptoms with CT findings with extensive lymphadenopathy. The patient notes progressive abdominal pain throughout the
abdomen radiating from the back, new in onset and not typical of any prior pain experience, found to have extensive lymphadenopathy on CT and MRI imaging concerning for malignancy. Also with findings to suggest possible cholecystitis and colitis,
although with normal LFTs and lactic acid. She continues with abdominal pain and is getting IV Dilaudid. She was made n.p.o. and placed on IV ceftriaxone and Flagyl. Pending surgery and colorectal evaluation. She has had no fevers or
leukocytosis.
Problems:
-Abdominal pain
-Abnormal CT findings with extensive lymphadenopathy and other findings as noted above concerning for malignancy
-Possible cholecystitis, colitis
-13 mm thyroid lesion
-History of melanoma in situ
-History of ulcerative colitis on Humira in remission
-Elevated lipase
Other pertinent medical history:
-Hypertension
-SVT
-Osteoporosis on Prolia
Recommendations:
-Etiology of abdominal pain possibly secondary to biliary etiology secondary to compression from lymphadenopathy versus cholecystitis versus pancreatitis versus colitis versus other.
---Elevated lipase of 1000 without pancreatitis on imaging could possibly be secondary to compression from lymphadenopathy on biliary ducts although not seen on imaging. She continues with significant abdominal pain although appears comfortable,
but did get IV Dilaudid this morning. CT and MRI imaging as noted above. Without leukocytosis or fevers to suggest infectious etiology.
-Discussed with Dr. Connor and Dr. Lin, with plan for EUS +/- ERCP for FNA of intra-abdominal lymphadenopathy
-Trend LFTs
-Continue n.p.o.
-IV fluids while n.p.o. and for possible pancreatitis as she continues with pain (lipase has normalized and LFTs are normal)
-PRN analgesics as per hospitalist
-She was started on antibiotics by the medical team for possible colitis. With normal lactic acid and presenting symptoms ischemic colitis is much less likely.
-Pending general surgery and colorectal eval
-Will reach out to her GI physician at [facility] to make note that she is here for admission
-Will follow
Data Reviewed
-
CT Scan: Report Reviewed by me and Discussed with Physician
MRI: Report Reviewed by me and Discussed with Physician
-
-
Thank you for consultation and allowing me to participate in the patient's care. Please call the workforce management consultant GI physician during the after hours with any questions or concerns.
--- NOTE | 2024-02-17 08:20 | W.PN.UPDATE ---
Update Note
Progress Note Update
Billing purposes
I agree with PARKING PATROLLER note
Plan for EUS with FNA of intra-abd lymphadenopathy this afternoon today
RN, hospitalist and pt updated
[2024-02-17] MEDS: OCUVITE SOFTGEL 1 CAP PO (08:43)
--- NOTE | 2024-02-17 09:18 | CON.GS ---
Consultation
-
Date/Time Consultation Requested: 02/17/2024 5 PM
Date/Time Consultation Performed: 02/17/2024 5:30 PM
Requesting Provider: Dr. Morgan
Performing Provider: Dr. Leo
Reason for Consultation: Gallbladder wall thickening on CT and the colitis
Medical History
-
Chief Complaint: Abdominal pain
History of Present Illness:
This is a 63-year-old female with a past medical history significant for ulcerative colitis on Humira, hypertension who presented to the emergency room on 02/15/2024 with complaints of mostly epigastric abdominal pain which felt like 'a band across
my abdomen'. The patient endorses at night sweats, roughly 10 pound weight loss over the past few weeks but denies blood in her stools, postprandial right upper quadrant pain, fever, Chest Pain, Shortness Of Breath, Nausea, Vomiting, changes in
urinary and bowel habits, jaundice, icterus, acolic stools. Due to her ulcerative colitis she has frequent colonoscopies ( last one ~2 years ago and was normal, 'maybe a few polyps'). Her admission labs were notable for a normal white count, and
LFTs but an elevated lipase 1000. She underwent a CT scan initially which demonstrated extensive mesenteric and retroperitoneal lymphadenopathy worrisome for malignancy. It also noted some gallbladder wall thickening suggestive of potential
cholecystitis. She then underwent an MRI which redemonstrated the upper abdominal lymphadenopathy concerning for lymphoma and though it noted prominent pericholecystic fluid and periportal edema it was deemed likely reactive as there was no
cholelithiasis or choledocholithiasis and no evidence of acute cholecystitis. She then underwent another CT scan which demonstrated some left-sided colitis which we were also called to comment on
Past Medical History
Past Medical History: Other (Arrhythmias, hypertension, ulcerative colitis on Humira, melanoma in situ.)
Past Surgical History: Other (Open right inguinal hernia repair with mesh)
Social History
Tobacco: Former Smoker
Alcohol: Occasional
Drug: None
Personal:
Living: With Family
Family History
Family History: Reviewed & Not Pertinent
Allergies / Home Medications
Allergy/AdvReac Type Severity Reaction Status Date / Time
ciprofloxacin [From Cipro] Allergy Itching Verified 02/15/24 03:24
�Medication �Instructions �Recorded �Confirmed �Type
acetaminophen 650 mg 1,300 mg PO BIDPRN PRN mild pain 02/15/24 02/15/24 History
tablet,extended release
adalimumab 40 mg/0.4 mL 40 mg SC Q2W Ulcerative colitis 02/15/24 02/15/24 History
subcutaneous pen kit (Humira(CF)
Pen)
cholecalciferol (vitamin D3) 125 125 mcg PO DAILY Supplement 02/15/24 02/15/24 History
mcg (5,000 unit) tablet (Vitamin
D3)
denosumab 60 mg/mL subcutaneous 60 mg SC [id number] osteoporosis 02/15/24 02/15/24 History
syringe (Prolia)
inulin-sorbitol 2 gram chewable 1 tab PO DAILY Supplement 02/15/24 02/15/24 History
tablet
loratadine 10 mg tablet (Claritin) 10 mg PO DAILY Allergies 02/15/24 02/15/24 History
metoprolol succinate 25 mg 25 mg PO HS Blood Pressure 02/15/24 02/15/24 History
tablet,extended release 24 hr
multivitamin 1 tab PO DAILY Supplement 02/15/24 02/15/24 History
naproxen sodium 220 mg tablet 220 mg PO DAILYPRN PRN mild pain 02/15/24 02/15/24 History
(Aleve)
ofloxacin 1 drp BOTH EYES TID CONJUNCTIVITIS 02/15/24 02/15/24 History
valacyclovir 500 mg tablet 500 mg PO DAILY anti-viral 02/15/24 02/15/24 History
vitamins A,C,A-vexn-milyay 4,296 1 cap PO DAILY Supplement 02/15/24 02/15/24 History
mcg-226 mg-90 mg capsule
(PreserVision AREDS)
Review of Systems
-
A 10 point review of systems was completed, and was negative except as per HPI.
Physical Exam
Vital Signs
Temp Pulse Resp BP Pulse Ox
98.3 F 93 18 149/93 98
02/17/24 07:19 02/17/24 07:19 02/17/24 07:19 02/17/24 07:19 02/17/24 07:19
02/16/24 02/17/24 02/18/24
06:59 06:59 06:59
Actual Weight 62.777 kg
Body Mass Index (BMI) 22.3
Lab Results
02/16/24 04:55
02/16/24 04:55
WBC 6.4 10^3/uL (4.8-10.8) 02/16/24 04:55
Hgb 12.1 g/dL (12.0-16.0) 02/16/24 04:55
Hct 34.5 % (37.0-47.0) L 02/16/24 04:55
Plt Count 395 10^3/uL (130-400) 02/16/24 04:55
Abs Immat Gran (auto) 0.0 10^3/uL (0-0.05) 02/15/24 06:13
Neutrophils % 54.5 % (42.2-75.2) 02/15/24 06:13
Physical Exam
General: Well Developed
HEENT: Normocephalic
Respiratory: Non Labored Respirations
GI: Soft, Non Tender and Non Distended
Data Reviewed
-
CT Scan: Image Personally Visualized and interpreted, Report Reviewed by me, Discussed with Patient and Discussed with Family
MRI: Image Personally Visualized and interpreted, Report Reviewed by me, Discussed with Patient and Discussed with Family
Labs: Labs Reviewed by me, Discussed with Physician, Discussed with Patient and Discussed with Family
Total Time Spent with Patient (in minutes): 60
Assessment / Plan
-
This is a 63-year-old female with a longstanding history of ulcerative colitis, melanoma in situ who presented on 02/15/2024 with a several day history of worsening abdominal pain in the setting of weeks of chills, night sweats and roughly 10 pound
weight loss. She has had multiple imaging studies concerning for extensive lymphadenopathy with no obvious mass concerning for lymphoma, gallbladder wall thickening as well as left-sided colitis.
#Gallbladder wall thickening
-The patient has no right upper quadrant tenderness, normal white count and LFTs and no stone disease on MRI. I suspect the thickening and pericholecystic fluid is secondary to periportal edema secondary to her lymphadenopathy. We could consider
obtaining a HIDA scan to definitively rule out cholecystitis however my suspicion for this diagnosis is extremely low, would follow clinically for now.
# Colitis
-Lactate normal, the colon appears well-perfused on her CT scan with IV contrast though a CTA would be more definitive. There is also nothing in her history that would indicate infectious etiology. Per the patient left-sided abdominal pain is
typical for her UC and I suspect this is just an exacerbation of her UC, we will just follow clinically for now.
Agree with EUS and FNA for tissue biopsy.
Okay for clears and advance diet as tolerated.
General surgery will follow along with serial abdominal exams.
[2024-02-17 10:22] LABS: Hematocrit 32.2 % (37.0-47.0); Hemoglobin 11.6 g/dL (12.0-16.0); Mean Corpuscular Hgb 33.8 pg (27.0-31.0); Mean Corpuscular Volume 93.9 fL (81.0-99.0); Mean Platelet Volume 8.7 fL (7.4-10.4); Platelet Count 367 10^3/uL (130-400); Red Blood Cell Count 3.43 10^6/uL (4.20-5.40); Red Cell Dist. Width 11.9 % (11.5-14.5); White Blood Cell Count 6.6 10^3/uL (4.8-10.8)
[2024-02-17 10:44] LABS: INR 1.21; PT 15.1 Sec (11.4-14.6)
[2024-02-17 10:46] LABS: ALT (SGPT) 16 U/L (0-35); AST (SGOT) 36 U/L (14-36); Albumin 3.8 g/dl (3.5-5.0); Alkaline Phosphatase 63 U/L (38-126); Blood Urea Nitrogen 9 mg/dl (7-17); Calcium 9.1 mg/dl (8.4-10.2); Carbon Dioxide 23 mmol/L (22-30); Chloride 103 mmol/L (98-107); Estimated Creatinine Clearance 88 ml/min; Glucose 73 mg/dl (70-99); Potassium 3.8 mmol/L (3.5-5.1); Sodium 134 mmol/L (135-145); Total Bilirubin 0.4 mg/dl (0.2-1.3); Total Protein 6.3 g/dl (6.3-8.2); eGFR > 60.00
--- NOTE | 2024-02-17 11:32 | CON.ONC ---
Addendum entered and electronically signed by Maria C Hardy MD 02/17/24 19:39:
Ordered gabapentin 200 mg PO HS for pain + oxycodone 5 mg PO Q4h PRN.
Pt to try PO oxycodone first, then request IV med if pain not relieved.
Original Note:
Impression
Impression
a/w abdominal pain
lymphadenopathy
colitis
gallbladder thickening
elevated lipase -resolved
UC on biologic
thyroid nodule
Plan
Plan
EUS for tissue diagnosis -will follow for path
on IV ab
pain management
check LDH, urate
Patient History
History of Present Illness
63yo F with ulcerative colitis on adalimumab (for years) presented to ER with abdominal pain. She reports pain in the lower abdomen that wraps around to her lower back. She also reports night sweats and 10lb weight loss in the past several
weeks. CBC shows normocytic anemia with Hgb 11.6g/dL, MCV 94 and normal WBC/platelets. CMP shows normal renal function, LFts, and Calcium. Admission lipase was 1000 which has trended to 97 today. 02/16/2024 CT chest, abdomen, and pelvis with IVC
showed extensive mesenteric, retroperitoneal and right retrocrural lymphadenopathy, possible cholecystitis, small amount of ascites, renal calculus of the right kidney, 13mm low density mass right lobe of the thyroid, DJD L5-S1 with probable old 10%
compression fracture T11, and possible colitis.
Clinically, she denies fever, chills, cough, sob, hendricks, chest pain, palpitations, n/v/d/c or abdominal pain. She denies changes in bowel habits, melena, or brbpr.
She is afebrile, no hypoxia or hypotension.
Past-Medical/Surgical History
PMH Ulcerative colitis, HTN, SVT, melanoma in situ
surgical hx inguinal hernia repair
Social former smoker, rare ETOH, denies recreational drugs. , lives with family
Patient Medication
�Medication �Instructions �Recorded �Confirmed �Last Taken �Type
acetaminophen 650 mg 1,300 mg PO BIDPRN PRN mild pain 02/15/24 02/15/24 02/14/24 History
tablet,extended release
adalimumab 40 mg/0.4 mL 40 mg SC Q2W Ulcerative colitis 02/15/24 02/15/24 02/10/24 History
subcutaneous pen kit (Humira(CF)
Pen)
cholecalciferol (vitamin D3) 125 125 mcg PO DAILY Supplement 02/15/24 02/15/24 1 Week Ago History
mcg (5,000 unit) tablet (Vitamin ~02/08/24
D3)
denosumab 60 mg/mL subcutaneous 60 mg SC [id number] osteoporosis 02/15/24 02/15/24 Unknown History
syringe (Prolia)
inulin-sorbitol 2 gram chewable 1 tab PO DAILY Supplement 02/15/24 02/15/24 1 Week Ago History
tablet ~02/08/24
loratadine 10 mg tablet (Claritin) 10 mg PO DAILY Allergies 02/15/24 02/15/24 1 Week Ago History
~02/08/24
metoprolol succinate 25 mg 25 mg PO HS Blood Pressure 02/15/24 02/15/24 02/14/24 History
tablet,extended release 24 hr
multivitamin 1 tab PO DAILY Supplement 02/15/24 02/15/24 1 Week Ago History
~02/08/24
naproxen sodium 220 mg tablet 220 mg PO DAILYPRN PRN mild pain 02/15/24 02/15/24 02/14/24 History
(Aleve)
ofloxacin 1 drp BOTH EYES TID CONJUNCTIVITIS 02/15/24 02/15/24 02/05/24 History
valacyclovir 500 mg tablet 500 mg PO DAILY anti-viral 02/15/24 02/15/24 1 Week Ago History
~02/08/24
vitamins A,C,L-[id number] 4,296 1 cap PO DAILY Supplement 02/15/24 02/15/24 1 Week Ago History
mcg-226 mg-90 mg capsule ~02/08/24
(PreserVision AREDS)
Active Medications
Generic Name Dose Route Start Last Admin
Trade Name Freq PRN Reason Stop Dose Admin
Acetaminophen 650 mg 02/15/24 18:08 02/16/24 03:42
Acetaminophen 325 Mg Tablet PO 03/14/24 18:07 650 mg
Q6HPRN PRN Administration
mild pain/ fever>100.5F
Bisacodyl 10 mg 02/15/24 12:22
Bisacodyl 10 Mg Rectal Suppository RECTAL 03/14/24 12:21
[id number] PRN
constipation
Ceftriaxone Sodium 2,000 mg 02/16/24 18:00 02/16/24 17:59
Ceftriaxone 2,000 Mg/20 Ml Vial IV 2,000 mg
Q24H PATTY Administration
Cholecalciferol 125 mcg 02/16/24 08:00 02/17/24 07:51
Cholecalciferol (Vitamin D3) 125 Mcg Tablet (5,000 Units) PO 03/15/24 07:59 125 mcg
DAILY PATTY Administration
Enoxaparin Sodium 40 mg 02/15/24 18:00 02/16/24 17:59
Enoxaparin Sodium 40 Mg/0.4 Ml Syringe SC 03/14/24 17:59 40 mg
QPM PATTY Administration
Hydromorphone HCl 0.5 mg 02/15/24 12:22 02/17/24 07:50
Hydromorphone 0.5 Mg/0.5 Ml Syringe IV 02/29/24 12:21 0.5 mg
Q4HPRN PRN Administration
severe pain
Lactated Ringer's 1,000 mls @ 75 mls/hr 02/15/24 12:22 02/17/24 02:28
Lr IV 1,000 mls
[id number] PATTY Administration
Metronidazole 100 mls @ 100 mls/hr 02/16/24 18:00 02/17/24 09:19
Flagyl 500 Mg IV 100 mls
Q8H PATTY Administration
Loratadine 10 mg 02/16/24 08:00 02/17/24 07:51
Loratadine 10 Mg Tablet PO 03/15/24 07:59 10 mg
DAILY PATTY Administration
Melatonin 3 mg 02/16/24 22:00 02/16/24 21:08
Melatonin 3 Mg Tablet PO 03/15/24 21:59 3 mg
HS PATTY Administration
Metoprolol Succinate 25 mg 02/15/24 22:00 02/16/24 21:09
Metoprolol 25 Mg Extended Release Tablet PO 03/14/24 21:59 25 mg
HS PATTY Administration
Morphine Sulfate 2 mg 02/15/24 18:08 02/16/24 19:47
Morphine 2 Mg/Ml Syringe IV 02/29/24 18:07 2 mg
Q1HPRN PRN Administration
moderate/severe pain/dyspnea
Multivitamins Therapeutic 1 tablet 02/16/24 08:00 02/17/24 07:51
Multivitamin Tablet PO 03/15/24 07:59 1 tablet
DAILY PATTY Administration
Ofloxacin 0 drop 02/15/24 22:00 02/17/24 07:51
Ofloxacin 0.3% (Ophthalmic Solution) 5 Ml Bottle OPHTH 03/14/24 21:59 2 drop
QID PATTY Administration
Ondansetron HCl 4 mg 02/15/24 12:22 02/16/24 11:40
Ondansetron 4 Mg/2 Ml Vial IV 03/14/24 12:21 4 mg
Q6HPRN PRN Administration
nausea and vomiting
Polyethylene Glycol 17 grams 02/15/24 12:22
Polyethylene Glycol Powder 17 Grams Packet PO 03/14/24 12:21
DAILYPRN PRN
constipation
Senna/Docusate Sodium 1 tablet 02/15/24 12:22
Docusate W/Senna (Charlene-Colace) Tablet PO 03/14/24 12:21
BIDPRN PRN
constipation
Sodium Chloride 0 flush 02/16/24 18:00 02/16/24 19:43
0.9% Nacl Flush If Lactated Ringers Ivf Ordered IV 03/15/24 17:59 Not Given
BID@1800,1805 PATTY
Sterile Water 20 ml 02/16/24 18:00 02/16/24 17:59
Sterile Water For Injection 20 Ml Vial IV 03/15/24 17:59 20 ml
Q24H PATTY Administration
Valacyclovir HCl 500 mg 02/16/24 08:00 02/17/24 07:51
Valacyclovir Hcl 500 Mg Tablet PO 02/26/24 07:59 500 mg
DAILY PATTY Administration
Vitamin C/Vitamin E 1 cap 02/16/24 08:00 02/17/24 08:43
Vit C/Vit E/Lutein/Min/Haughton-3 (Ocuvite) Capsule PO 03/15/24 07:59 1 cap
DAILY PATTY Administration
Review of Systems
-
Review of systems notable for HPI otherwise negative
Physical Exam
-
General: Well Developed, Well Nourished and No Apparent Distress
HEENT: Moist Mucous Membranes; Negative Jaundice
Cardiology: Normal Sinus Rhythm
Pulmonary: Clear
GI: Soft and Other (TTP right and left lower quadrant)
Genito-Urinary: Negative Costovertebral Angle Tenderness
Musculoskeletal: Normal Gait & Station; Negative No Edema
Extremities: Negative Edema
Neurology: Negative Non Focal
Skin: Warm and Dry
Hematologic / Lymphatic: Negative Lymphadenopathy
Labs
Lab Results
WBC 6.6 10^3/uL (4.8-10.8) 02/17/24 10:15
RBC 3.43 10^6/uL (4.20-5.40) L 02/17/24 10:15
Hgb 11.6 g/dL (12.0-16.0) L 02/17/24 10:15
Hct 32.2 % (37.0-47.0) L 02/17/24 10:15
MCV 93.9 fL (81.0-99.0) 02/17/24 10:15
MCH 33.8 pg (27.0-31.0) H 02/17/24 10:15
MCHC 36.0 g/dL (33.0-37.0) 02/17/24 10:15
RDW 11.9 % (11.5-14.5) 02/17/24 10:15
Plt Count 367 10^3/uL (130-400) 02/17/24 10:15
MPV 8.7 fL (7.4-10.4) 02/17/24 10:15
Abs Immat Gran (auto) 0.0 10^3/uL (0-0.05) 02/15/24 06:13
Absolute Neuts (auto) 4.1 10^3/uL (1.4-6.5) 02/15/24 06:13
Absolute Lymphs (auto) 2.1 10^3/uL (1.2-3.4) 02/15/24 06:13
Absolute Monos (auto) 0.9 10^3/uL (0.1-0.6) H 02/15/24 06:13
Absolute Eos (auto) 0.4 10^3/uL (0-0.7) 02/15/24 06:13
Absolute Basos (auto) 0.1 10^3/uL (0-0.2) 02/15/24 06:13
Immature Gran % 0.1 % (0-0.5) 02/15/24 06:13
Neutrophils % 54.5 % (42.2-75.2) 02/15/24 06:13
Lymphocytes % 27.5 % (20.5-51.1) 02/15/24 06:13
Monocytes % 11.8 % (1.7-9.3) H 02/15/24 06:13
Eosinophils % 5.2 % (0-6) 02/15/24 06:13
Basophils % 0.9 % (0-2) 02/15/24 06:13
Creatinine 0.5 mg/dL (0.6-1.0) L 02/17/24 10:15
Vital Signs
Vital Signs
Temp Pulse Resp BP Pulse Ox
98.3 F 93 18 149/93 98
02/17/24 07:19 02/17/24 07:19 02/17/24 07:19 02/17/24 07:19 02/17/24 07:19
--- NOTE | 2024-02-17 13:10 | W.PN.HOSP.TC ---
Today's Communication/Plan
-
Await EUS
Assessment / Plan
Assessment / Plan
Gen-AAOx3, NAD
HEENT-NC, AT, anicteric, clear oral mm
Neck-supple
CV-reg, no M, +S1/S2
Lungs-clear B/L
Abd-soft, NT, ND
Ext-no edema
Musculoskeletal-no cyanosis, clubbing
Skin-warm and dry
Neuro-grossly non-focal
Psych-calm, cooperative
Left-sided colitis/cholecystitis/chemical pancreatitis -currently no unifying diagnosis. Extensive upper abdominal lymphadenopathy concerning for lymphoma or other malignancy. Awaiting EUS today. May need ERCP. Discussed with gastroenterology.
Currently NPO.
On empiric broad-spectrum antibiotics. No signs or symptoms of sepsis.
Hyponatremia -sodium 134.
Ulcerative colitis -on Humira. Followed by GI in [place].
Right Thyroid Lab Mass
-Seen on imaging this admission
Small Ascites
-Seen on imaging this admission
-Monitor for worsening ascites and need for possible paracentesis
Nonobstructing Kidney Stone
Renal Cyst
-Seen on CT imaging
Essential HTN
History of SVT
Full code
Anticipated Discharge: > 48 hours
Subjective/Interval History
-
Date of Service: February 17, 2024
Patient seen and examined. Complaining of abdominal achiness, pain. Anorexia.
Objective Data
-
Labs:
Laboratory Results
02/17/24
10:15
WBC 6.6
Hgb 11.6 L
Hct 32.2 L
Plt Count 367
PT 15.1 H
INR 1.21
Sodium 134 L
Potassium 3.8
Chloride 103
Carbon Dioxide 23
BUN 9
Creatinine 0.5 L
Glucose 73
Calcium 9.1
Total Bilirubin 0.4
AST 36
ALT 16
Alkaline Phosphatase 63
Vital Signs:
Vital Signs
Temp Pulse Resp BP Pulse Ox
98.3 F 93 18 149/93 98
02/17/24 07:19 02/17/24 07:19 02/17/24 07:19 02/17/24 07:19 02/17/24 07:19
I&O
02/16/24 02/17/24 02/18/24
06:59 06:59 06:59
Intake Total 2400 / 2400 600 / 600
Balance 2400 / 2400 600 / 600
Review of Systems
-
History Source: Patient
All other systems: Reviewed and negative
[2024-02-17] MEDS: MORPHINE SULFATE 2 MG IV (13:34)
[2024-02-17] MEDS: NSS 1000 IV (13:35)
[2024-02-17 14:17] LABS: LDH 568 U/L (120-246); Uric Acid 4.7 mg/dl (2.5-6.2)
[2024-02-17] MEDS: LR IV (14:23)
[2024-02-17 15:35] VITALS: BP 160/96
--- NOTE | 2024-02-17 17:15 | W.PN.UPDATE ---
Update Note
Progress Note Update
GI procedure unable to be done today
Will allow diet and NPO at [facility] for EUS with Dr Connor tomorrow.
[2024-02-17] MEDS: STERILE WATER FOR INJECTION 20 ML IV (18:29)
[2024-02-17] MEDS: LOVENOX 40 MG SC (18:29)
[2024-02-17] MEDS: ROCEPHIN 2000 MG IV (18:29)
[2024-02-17] MEDS: FLUSH (NSS) IV ×2 (19:36)
[2024-02-17] MEDS: MELATONIN 3 MG PO (21:02)
[2024-02-17] MEDS: NEURONTIN 200 MG PO (21:02)
[2024-02-17] MEDS: TOPROL XL 25 MG PO (21:03)
[2024-02-17 23:20] VITALS: BP 135/81
[2024-02-18] VITALS (9 sets, daily range): BP systolic 18–163; BP diastolic 81–106
[2024-02-18] MEDS: ROXICODONE 5 MG PO ×3 (02:11→21:07)
[2024-02-18] MEDS: NSS 1000 IV (02:12)
[2024-02-18] MEDS: FLAGYL 500 MG 100 IV ×3 (02:12→17:27)
[2024-02-18] MEDS: TYLENOL 650 MG PO (06:18)
--- NOTE | 2024-02-18 07:05 | W.PN.GS2 ---
Today's Communication / Plan
-
-- EUS with FNA today with GI
-- Diet and management of UC per GI
-- No role for surgical intervention at this time
-- Please call with questions or concerns
Assessment / Plan
-
Patient is a 63 yo F p/w abdominal pain in the setting of newly found lymphadenopathy.
Needs tissue diagnosis, plans for EUS today with GI. Unlikely to be related to cholecystitis given MRI findings without concerning findings and no identified stones. Possible UC flare though unlikely given symptoms and imaging. GI on board. No
plans or indication for surgical intervention at this time.
-- EUS with FNA today with GI
-- Diet and management of UC per GI
-- No role for surgical intervention at this time
-- Please call with questions or concerns
Subjective Data
-
Date of Service: February 18, 2024
Continued RIGHT-sided abdominal discomfort, worse this AM. Associated mild nausea, no emesis. No flatus or BM since admission. No fevers or chills. Patient reports symptoms have been progressive over the past 2-3 weeks. Associated night sweats
and > 10 lbs weight loss. Able to tolerate PO intake and no association of pain with eating. Follows with GI at [facility], no reports of worsening bloody or mucus stools.
Objective Data
-
Intake and Output
02/17/24 02/18/24 02/19/24
06:59 06:59 06:59
Intake Total 600 / 600 1450 / 1450
Balance 600 / 600 1450 / 1450
Intake:
Oral fluids 600 / 600 600 / 600
IV fluids (Total) 750 / 750
IV piggybacks 100 / 100
Other:
Number of approximated MODERATE 6 2
amounts of urine
Vital Signs
Temp Pulse Resp BP Pulse Ox
98.1 F 90 16 135/81 94
02/17/24 23:20 04/15/24 23:20 02/17/24 23:20 02/17/24 23:20 02/17/24 23:20
Lab Results
02/17/24 10:15
02/17/24 10:15
Calcium 9.1 mg/dl (8.4-10.2) 02/17/24 10:15
Total Bilirubin 0.4 mg/dl (0.2-1.3) 02/17/24 10:15
AST 36 U/L (14-36) 02/17/24 10:15
ALT 16 U/L (0-35) 02/17/24 10:15
Alkaline Phosphatase 63 U/L (38-126) 02/17/24 10:15
Total Protein 6.3 g/dl (6.3-8.2) 02/17/24 10:15
Albumin 3.8 g/dl (3.5-5.0) 02/17/24 10:15
Physical Exam
-
Gen: NAD
Abd: soft, tender to palpation in RIGHT mid abdomen and RUQ, no palpable mass, ND, non-peritoneal
[2024-02-18] MEDS: VALTREX 500 MG PO (08:35)
[2024-02-18] MEDS: OCUFLOX 2 DROP OPHTH ×3 (08:35→17:27)
[2024-02-18] MEDS: CLARITIN 10 MG PO (08:35)
[2024-02-18] MEDS: VITAMIN D3 (cholecalciferol) 125 MCG PO (08:35)
[2024-02-18] MEDS: SENOKOT-S 1 TABLET PO ×2 (08:35→22:29)
[2024-02-18] MEDS: THERAGRAN 1 TABLET PO (08:35)
[2024-02-18] MEDS: OCUVITE SOFTGEL 1 CAP PO (08:35)
--- NOTE | 2024-02-18 10:00 | W.PN.HOSP.TC ---
Today's Communication/Plan
-
EUS today
Assessment / Plan
Assessment / Plan
Gen-AAOx3, NAD
HEENT-NC, AT, anicteric, clear oral mm
Neck-supple
CV-reg, no M, +S1/S2
Lungs-clear B/L
Abd-soft, NT, ND
Ext-no edema
Musculoskeletal-no cyanosis, clubbing
Skin-warm and dry
Neuro-grossly non-focal
Psych-calm, cooperative
Left-sided colitis/cholecystitis/chemical pancreatitis -currently no unifying diagnosis. Extensive upper abdominal lymphadenopathy concerning for lymphoma or other malignancy. Awaiting EUS today. May need ERCP. Discussed with gastroenterology.
Currently NPO.
On empiric broad-spectrum antibiotics. No signs or symptoms of sepsis. Blood cultures negative so far.
Hyponatremia -sodium 134.
Ulcerative colitis -on Humira. Followed by GI in [place].
Right Thyroid Lab Mass
-Seen on imaging this admission
Small Ascites
-Seen on imaging this admission
-Monitor for worsening ascites and need for possible paracentesis
Nonobstructing Kidney Stone
Renal Cyst
-Seen on CT imaging
Essential HTN -pressures elevated due to acute pain.
History of SVT
Full code
Anticipated Discharge: 24 - 48 hours
Subjective/Interval History
-
Date of Service: February 18, 2024
Patient seen and examined. Complaining of right-sided abdominal pain. Does not look in distress.
Objective Data
-
Vital Signs:
Vital Signs
Temp Pulse Resp BP Pulse Ox
97.6 F 95 18 144/105 98
02/18/24 07:00 02/18/24 08:38 02/18/24 07:00 02/18/24 08:38 02/18/24 07:00
I&O
0402/18/24 02/19/24
06:59 06:59 06:59
Intake Total 600 / 600 1450 / 1450
Balance 600 / 600 1450 / 1450
Review of Systems
-
History Source: Patient
All other systems: Reviewed and negative
[2024-02-18] MEDS: STERILE WATER FOR INJECTION 20 ML IV (17:26)
[2024-02-18] MEDS: ROCEPHIN 2000 MG IV (17:26)
[2024-02-18] MEDS: LOVENOX 40 MG SC (17:27)
[2024-02-18] MEDS: FLUSH (NSS) IV ×2 (18:00)
[2024-02-18] MEDS: MELATONIN 3 MG PO (21:08)
[2024-02-18] MEDS: NEURONTIN 200 MG PO (21:08)
[2024-02-18] MEDS: OCUFLOX OPHTH (21:12)
[2024-02-18] MEDS: TOPROL XL 25 MG PO (21:15)
[2024-02-18] MEDS: DILAUDID 0.5 MG IV (22:11)
[2024-02-19] MEDS: FLAGYL 500 MG 100 IV ×2 (02:50→09:24)
[2024-02-19] MEDS: DILAUDID 0.5 MG IV (03:20)
--- NOTE | 2024-02-19 04:44 | DOWNTIME ---
There was a ADstruc Client [employer] Downtime on 02/19/2024 from 0100 to 02/19/2024 at 0439. Downtime documentation of patient's care, including medication administrations, has been reconciled in the electronic record per guidelines. Refer to the
patient's paper chart under the miscellaneous tab to see printed paper medication records and downtime forms.
--- NOTE | 2024-02-19 06:28 | W.PN.ONC2 ---
Today's Communication / Plan
-
Await cytology. Clinical presentation suggestive of lymphoma.
If non diagnostic, might need exploratory lap for LN Biopsy.
Impression
Impression
a/w abdominal pain
lymphadenopathy
colitis
gallbladder thickening
elevated lipase -resolved
UC on biologic
thyroid nodule
Plan
Plan
s/p EUS for tissue diagnosis - await cytology. Clinical presentation suggestive of lymphoma.
If non diagnostic, might need exploratory lap for LN Biopsy.
pain management
Subjective/Objective
Chief Complaint
ACS Heme Onc F/U
Subjective
S/P EUS yesterday. Results noted below. Main issue remains epigastric abd pain 9/10 at worse, 2/10 at best with Oxycodone. Anxious regarding the absence of a pathologic diagnosis yet. Associated night sweats and > 10 lbs weight loss. Follows
with GI at [facility] with UC.
Vital Signs:
Vital Signs
Temp Pulse Resp BP Pulse Ox
98.0 F 98 20 118/81 94
02/18/24 23:13 02/18/24 23:13 02/18/24 23:13 02/18/24 23:13 02/18/24 23:13
Lab Results:
Laboratory Data
WBC 6.6 10^3/uL (4.8-10.8) 02/17/24 10:15
Hgb 11.6 g/dL (12.0-16.0) L 02/17/24 10:15
Plt Count 367 10^3/uL (130-400) 02/17/24 10:15
PT 15.1 Sec (11.4-14.6) H 02/17/24 10:15
INR 1.21 02/17/24 10:15
eGFR > 60.00 02/17/24 10:15
Laboratory Tests
02/17/24 02/17/24
05:39 10:15
Uric Acid 4.7
Lactate Dehydrogenase 568 H
Lipase 97
EUS 02/17:
- Many suspected enlarged lymph nodes were visualized
in the gastrohepatic ligament (level 18), splenic
region (level 19) and celiac region (level 20). Fine
needle aspiration performed.
- There was no sign of significant pathology in the
pancreatic head and pancreatic body.
- There was no sign of significant pathology in the
common bile duct.
Recommendation: - [facility] to [facility] for [facility] care.
- Clear liquid diet today.
- Await cytology results.
Physical Exam
HEENT: No Jaundice
Cardiology: S1 and S2
Pulmonary: Clear
GI: Soft
[2024-02-19 07:11] VITALS: BP 143/91
[2024-02-19] MEDS: VALTREX 500 MG PO (08:00)
[2024-02-19] MEDS: VITAMIN D3 (cholecalciferol) 125 MCG PO (08:00)
[2024-02-19] MEDS: THERAGRAN 1 TABLET PO (08:00)
[2024-02-19] MEDS: OCUFLOX 1 DROP OPHTH ×4 (08:00→21:13)
[2024-02-19] MEDS: CLARITIN 10 MG PO (08:00)
[2024-02-19] MEDS: OCUVITE SOFTGEL 1 CAP PO (08:00)
[2024-02-19] MEDS: TYLENOL 650 MG PO ×2 (08:04→15:23)
[2024-02-19] MEDS: SENOKOT-S 1 TABLET PO ×2 (08:04→17:18)
[2024-02-19] MEDS: ROXICODONE 5 MG PO ×3 (09:24→21:11)
--- NOTE | 2024-02-19 09:56 | W.PN.GI.CBS2 ---
Today's Communication / Plan
-
Await cytology results- already being expedited
If inconclusive, may need ex lap/LN bx next
Assessment / Plan
-
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
abdominal pain. CT - extensive lymphadenopathy. The patient notes progressive abdominal pain throughout the abdomen radiating from the back, new in onset and not typical of any prior pain experience, found to have extensive lymphadenopathy on CT
and MRI imaging concerning for malignancy. Also with findings to suggest possible cholecystitis and colitis, although with normal LFTs and lactic acid. She continues with abdominal pain and is getting IV Dilaudid.
02/18/24 EUS/FNA
Many suspected enlarged LN in gastrohepatic ligament, splenic region, and celiac region. Largest 65mm x 56mm s/p FNA. Normal pancreas
02/16/24 CT CAP
1). There is extensive mesenteric, retroperitoneal and right retrocrural lymphadenopathy suggesting malignancies such as may be seen with lymphoma.
2). There is moderate low-density gallbladder wall thickening suggesting cholecystitis
3). There is wall thickening and pericolonic inflammatory stranding descending and sigmoid colon suggesting colitis
4). There is a small amount of ascites in the pelvis.
5). There is 7 mm nonobstructing calculus in the lower pole of the right kidney
6). There are right-sided renal cysts measuring up to 3 cm
7).There is a 13 mm low-density 13 Hounsfield unit) mass in the right lobe of the thyroid.
This mass may be benign or malignant and, could be best further evaluated and followed with ultrasound.
8). Degenerative disc disease at L5-S1
02/15/24 MRI-
Extensive confluent upper abdominal lymphadenopathy highly suspicious for neoplasm such as lymphoma.
Prominent pericholecystic fluid and periportal edema, likely reactive. No cholelithiasis or choledocholithiasis. No convincing evidence for acute cholecystitis.
Impressoin:
-Abdominal pain
-Abnormal CT findings with extensive lymphadenopathy and other findings as noted above concerning for malignancy s/p FNA 02/17
-Possible cholecystitis, colitis
-13 mm thyroid lesion
-History of melanoma in situ
-History of ulcerative colitis on Humira in remission
-Elevated lipase
Subjective
Subjective
Date of Service: February 19, 2024
Abd pain persists, requiring pain meds regularly. Anxious for results of FNA
Objective
Data Reviewed
Laboratory Data:
Laboratory Results
02/17/24 10:15
02/17/24 10:15
Laboratory Results
PT 15.1 Sec (11.4-14.6) H 02/17/24 10:15
INR 1.21 02/17/24 10:15
Total Bilirubin 0.4 mg/dl (0.2-1.3) 02/17/24 10:15
AST 36 U/L (14-36) 02/17/24 10:15
ALT 16 U/L (0-35) 02/17/24 10:15
Alkaline Phosphatase 63 U/L (38-126) 02/17/24 10:15
Lipase 97 U/L (23-300) 02/17/24 05:39
Vital Signs and I&O:
Vital Signs
Temp Pulse Resp BP Pulse Ox
98.2 F 104 18 143/91 96
02/19/24 07:11 02/19/24 07:11 02/19/24 07:11 02/19/24 07:11 02/19/24 07:11
I&O
02/18/24 02/19/24 02/20/24
06:59 06:59 06:59
Intake Total 1450 / 1450 700 / 700
Balance 1450 / 1450 700 / 700
Physical Exam
Physical Exam
GI: Soft, Non Distended and Tender
--- NOTE | 2024-02-19 11:50 | W.PN.HOSP.TC ---
Today's Communication/Plan
-
Await pathology results
Stop antibiotics
Pain control
Assessment / Plan
Assessment / Plan
Gen-AAOx3, NAD
HEENT-NC, AT, anicteric, clear oral mm
Neck-supple
CV-reg, no M, +S1/S2
Lungs-clear B/L
Abd-soft, NT, ND
Ext-no edema
Musculoskeletal-no cyanosis, clubbing
Skin-warm and dry
Neuro-grossly non-focal
Psych-calm, cooperative
Left-sided colitis/cholecystitis/chemical pancreatitis -currently no unifying diagnosis. Extensive upper abdominal lymphadenopathy concerning for lymphoma or other malignancy. EUS completed on 02/17 showing significant lymphadenopathy. Biopsy
completed, report pending. Appreciate GI and oncology input. She may need exploratory laparotomy if pathology inconclusive. Can discontinue further antibiotics, discussed with Dr. Roach of GI.
Intractable abdominal pain -unclear etiology. Atypical for lymphoma to cause significant pain like this. She is getting a combination of IV Dilaudid and oral oxycodone. Encouraged ambulation as she is constipated. Has not had a BM since the day
she was admitted.
Hyponatremia -sodium 134.
Ulcerative colitis -on Humira. Followed by GI in [place].
Right Thyroid Lab Mass
-Seen on imaging this admission
Small Ascites
-Seen on imaging this admission
-Monitor for worsening ascites and need for possible paracentesis
Nonobstructing Kidney Stone
Renal Cyst
-Seen on CT imaging
Essential HTN -pressures elevated due to acute pain.
History of SVT
Full code
Anticipated Discharge: 24 - 48 hours
Subjective/Interval History
-
Date of Service: February 19, 2024
Patient seen and examined. Had significant abdominal pain last night, now better.
Objective Data
-
Vital Signs:
Vital Signs
Temp Pulse Resp BP Pulse Ox
98.2 F 104 18 143/91 96
02/19/24 07:11 02/19/24 07:11 02/19/24 07:11 02/19/24 07:11 02/19/24 07:11
I&O
02/18/24 02/19/24 02/20/24
06:59 06:59 06:59
Intake Total 1450 / 1450 700 / 700
Balance 1450 / 1450 700 / 700
Review of Systems
-
History Source: Patient
All other systems: Reviewed and negative
[2024-02-19 15:05] VITALS: BP 165/103
[2024-02-19] MEDS: LOVENOX 40 MG SC (17:18)
[2024-02-19] MEDS: MOTRIN 800 MG PO (17:19)
[2024-02-19] MEDS: MELATONIN 3 MG PO (21:10)
[2024-02-19] MEDS: NEURONTIN 200 MG PO (21:10)
[2024-02-19] MEDS: TOPROL XL 25 MG PO (21:11)
[2024-02-19 23:00] VITALS: BP 129/75
[2024-02-20] MEDS: ROXICODONE 5 MG PO ×2 (04:46→10:07)
[2024-02-20 07:06] VITALS: BP 131/81
[2024-02-20] MEDS: CLARITIN 10 MG PO (08:11)
[2024-02-20] MEDS: VITAMIN D3 (cholecalciferol) 125 MCG PO (08:12)
[2024-02-20] MEDS: VALTREX 500 MG PO (08:12)
[2024-02-20] MEDS: OCUVITE SOFTGEL 1 CAP PO (08:12)
[2024-02-20] MEDS: OCUFLOX 2 DROP OPHTH (08:12)
[2024-02-20] MEDS: THERAGRAN 1 TABLET PO (08:12)
[2024-02-20] MEDS: MOTRIN 800 MG PO (08:15)
--- NOTE | 2024-02-20 09:36 | W.PN.ONC ---
Addendum entered and electronically signed by Marc Marquez DO 02/20/24 11:39:
Pathology personally reviewed. CD45 positive malignant cells. Paradoxical mucin. Additional IHC and flow cytometry pending. Stable for discharge and follow-up in the office
Original Note:
Today's Communication / Plan
-
02/18/24 s/p EUS for tissue diagnosis
Await final cytology
If non diagnostic, may need exploratory lap for lymph node biopsy
Pain management
Bowel regimen
Patient is eager for discharge. She plans to meet with [facility] for further discussion. She is interested in local chemotherapy with [place] if able to coordinate this with [place].
[place] office updated of patient's clinical status. Emotional support provided. Our card was provided.
Impression
Impression
Abdominal pain
Lymphadenopathy
Acute colitis
Small volume pelvis ascites
Gallbladder thickening
Elevated lipase (resolved)
Hx ulcerative colitis on biologic
Thyroid nodule
Anxiety
Subjective/Objective
Subjective/Objective
patient is OOB to the chair, dressed, and hopeful for discharge. she states her pain is better controlled at this time. she is anxious regarding pathology results. she is passing gas, no BM this morning. requesting pathology slide
Vital Signs:
Vital Signs
Temp Pulse Resp BP Pulse Ox
98.7 F 91 18 131/81 97
02/20/24 07:06 02/20/24 07:06 02/20/24 07:06 02/20/24 07:06 02/20/24 07:06
physical exam unchanged
Lab Results:
Laboratory Data
WBC 6.6 10^3/uL (4.8-10.8) 02/17/24 10:15
Hgb 11.6 g/dL (12.0-16.0) L 02/17/24 10:15
Plt Count 367 10^3/uL (130-400) 02/17/24 10:15
PT 15.1 Sec (11.4-14.6) H 02/17/24 10:15
INR 1.21 02/17/24 10:15
eGFR > 60.00 02/17/24 10:15
02/16/24 CT chest/abd/pelvis: There is extensive mesenteric, retroperitoneal and right retrocrural lymphadenopathy suggesting malignancies such as may be seen with lymphoma. There is moderate low-density gallbladder wall thickening suggesting
cholecystitis. There is wall thickening and pericolonic inflammatory stranding descending and sigmoid colon suggesting colitis. There is a small amount of ascites in the pelvis. There is 7 mm nonobstructing calculus in the lower pole of the right
kidney. There are right-sided renal cysts measuring up to 3 cm. There is a 13 mm low-density 13 Hounsfield unit) mass in the right lobe of the thyroid. This mass may be benign or malignant and, could be best further evaluated and followed with
ultrasound. Degenerative disc disease at L5-[id number] old 10% compression fracture of the superior endplate of T11.
--- NOTE | 2024-02-20 10:03 | W.PN.GI.CBS2 ---
Today's Communication / Plan
-
FNA positive for malignancy. Awaiting special stains to identify source
Start protonix 40mg daily since she is on high dose NSAIDs
For d/c and f/u at [place], but wants rx local if possible
Will sign off
Assessment / Plan
-
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
abdominal pain. CT - extensive lymphadenopathy. The patient notes progressive abdominal pain throughout the abdomen radiating from the back, new in onset and not typical of any prior pain experience, found to have extensive lymphadenopathy on CT
and MRI imaging concerning for malignancy. Also with findings to suggest possible cholecystitis and colitis, although with normal LFTs and lactic acid. She continues with abdominal pain and is getting IV Dilaudid.
02/18/24 EUS/FNA
Many suspected enlarged LN in gastrohepatic ligament, splenic region, and celiac region. Largest 65mm x 56mm s/p FNA. Normal pancreas
02/16/24 CT CAP
1). There is extensive mesenteric, retroperitoneal and right retrocrural lymphadenopathy suggesting malignancies such as may be seen with lymphoma.
2). There is moderate low-density gallbladder wall thickening suggesting cholecystitis
3). There is wall thickening and pericolonic inflammatory stranding descending and sigmoid colon suggesting colitis
4). There is a small amount of ascites in the pelvis.
5). There is 7 mm nonobstructing calculus in the lower pole of the right kidney
6). There are right-sided renal cysts measuring up to 3 cm
7).There is a 13 mm low-density 13 Hounsfield unit) mass in the right lobe of the thyroid.
This mass may be benign or malignant and, could be best further evaluated and followed with ultrasound.
8). Degenerative disc disease at L5-S1
02/15/24 MRI-
Extensive confluent upper abdominal lymphadenopathy highly suspicious for neoplasm such as lymphoma.
Prominent pericholecystic fluid and periportal edema, likely reactive. No cholelithiasis or choledocholithiasis. No convincing evidence for acute cholecystitis.
Impressoin:
-Abdominal pain
-Abnormal CT findings with extensive lymphadenopathy and other findings as noted above concerning for malignancy s/p FNA 02/17
-Possible cholecystitis, colitis
-13 mm thyroid lesion
-History of melanoma in situ
-History of ulcerative colitis on Humira in remission
-Elevated lipase
Subjective
Subjective
Date of Service: February 20, 2024
Pain controlled on oxycontin and motrin.
Objective
Data Reviewed
Laboratory Data:
Laboratory Results
02/17/24 10:15
02/17/24 10:15
Laboratory Results
PT 15.1 Sec (11.4-14.6) H 02/17/24 10:15
INR 1.21 02/17/24 10:15
Total Bilirubin 0.4 mg/dl (0.2-1.3) 02/17/24 10:15
AST 36 U/L (14-36) 02/17/24 10:15
ALT 16 U/L (0-35) 02/17/24 10:15
Alkaline Phosphatase 63 U/L (38-126) 02/17/24 10:15
Lipase 97 U/L (23-300) 02/17/24 05:39
Vital Signs and I&O:
Vital Signs
Temp Pulse Resp BP Pulse Ox
98.7 F 91 18 131/81 97
02/20/24 07:06 02/20/24 07:06 02/20/24 07:06 02/20/24 07:06 02/20/24 07:06
I&O
02/19/24 02/20/24 02/21/24
06:59 06:59 06:59
Intake Total 700 / 700 1200 / 1200
Balance 700 / 700 1200 / 1200
[2024-02-20] MEDS: SENOKOT-S 1 TABLET PO (10:06)
[2024-02-20] MEDS: PROTONIX 40 MG PO (10:09)
--- NOTE | 2024-02-20 11:12 | W.DS.TRANS ---
DC Summary - Rn Testing
-
Discharge Instructions:
Discharge Diagnosis/Procedures Intractable abdominal pain, preliminary
diagnosis of lymphoma
Diet Low Residue
Activity As tolerated
Driving Restrictions As prior to admission
Bathing Restrictions None
Instructions:
Stand-Alone Forms:
Changes to Home Medications: Yes
Discharge Medications:
DC Medications w/original date entered in [employer]
adalimumab 40 mg/0.4 mL subcutaneous pen kit (Humira(CF) Pen) 40 mg SC Q2W Ulcerative colitis 02/15/24
cholecalciferol (vitamin D3) 125 mcg (5,000 unit) tablet (Vitamin D3) 125 mcg PO DAILY Supplement 02/15/24
denosumab 60 mg/mL subcutaneous syringe (Prolia) 60 mg SC [id number] osteoporosis 02/15/24
inulin-sorbitol 2 gram chewable tablet 1 tab PO DAILY Supplement 02/15/24
loratadine 10 mg tablet (Claritin) 10 mg PO DAILY Allergies 02/15/24
metoprolol succinate 25 mg tablet,extended release 24 hr 25 mg PO HS Blood Pressure 02/15/24
multivitamin 1 tab PO DAILY Supplement 02/15/24
valacyclovir 500 mg tablet 500 mg PO DAILY anti-viral 02/15/24
vitamins A,C,D-fghl-ljurti 4,296 mcg-226 mg-90 mg capsule (PreserVision AREDS) 1 cap PO DAILY Supplement 02/15/24
gabapentin 100 mg capsule 200 mg (2 x 100 mg) PO HS #60 caps 02/20/24
ibuprofen 800 mg tablet 800 mg PO Q6HPRN PRN mild pain #30 tabs 02/20/24
oxycodone 5 mg tablet 5 mg PO Q4HPRN PRN MODERATE PAIN #30 tabs 02/20/24
pantoprazole 40 mg tablet,delayed release 40 mg PO DAILY #30 tabs 02/20/24
sennosides 8.6 mg-docusate sodium 50 mg tablet (Stool Softener-Stimulant Laxative) 1 tab PO BIDPRN PRN constipation #0 tabs 02/20/24
Home Medication Changes
Stop naproxen
Pending Results: No
--- NOTE | 2024-02-20 11:13 | W.PN.HOSP.TC ---
Addendum entered and electronically signed by Amadeo Gil DO 02/21/24 13:57:
Severe protein calorie malnutrition
Original Note:
Today's Communication/Plan
-
Discharge
Assessment / Plan
Assessment / Plan
Gen-AAOx3, NAD
HEENT-NC, AT, anicteric, clear oral mm
Neck-supple
CV-reg, no M, +S1/S2
Lungs-clear B/L
Abd-soft, NT, ND
Ext-no edema
Musculoskeletal-no cyanosis, clubbing
Skin-warm and dry
Neuro-grossly non-focal
Psych-calm, cooperative
Left-sided colitis/cholecystitis/chemical pancreatitis -currently no unifying diagnosis. Extensive upper abdominal lymphadenopathy concerning for lymphoma or other malignancy. EUS completed on 02/17 showing significant lymphadenopathy. Biopsy
completed, report pending. Appreciate GI and oncology input. She may need exploratory laparotomy if pathology inconclusive. Can discontinue further antibiotics, discussed with Dr. Roach of GI.
Intractable abdominal pain - presumably due to significant intra-abdominal lymphadenopathy, possibly related to new diagnosis of lymphoma. Continue current analgesics including ibuprofen as needed, oxycodone 5 mg as needed. Patient is satisfied
with pain regimen. Discussed importance of high-fiber diet and bowel regimen to prevent opioid-induced constipation. Discontinue naproxen.
Hyponatremia -sodium 134.
Ulcerative colitis -on Humira. Followed by GI in [place].
Right Thyroid Lab Mass
-Seen on imaging this admission
Small Ascites
-Seen on imaging this admission
-Monitor for worsening ascites and need for possible paracentesis
Nonobstructing Kidney Stone
Renal Cyst
-Seen on CT imaging
Essential HTN -pressures elevated due to acute pain.
History of SVT
Full code
Dispo -medically stable for discharge today. Outpatient follow-up with oncology and PCP. updated at the bedside.
33 minutes spent in discharge process.
Anticipated Discharge: Today
Subjective/Interval History
-
Date of Service: February 20, 2024
Patient seen and examined. Looks and feels much better. Pain is controlled.
Objective Data
-
Vital Signs:
Vital Signs
Temp Pulse Resp BP Pulse Ox
98.7 F 91 18 131/81 97
02/20/24 07:06 02/20/24 07:06 02/20/24 07:06 02/20/24 07:06 02/20/24 07:06
I&O
02/19/24 02/20/24 02/21/24
06:59 06:59 06:59
Intake Total 700 / 700 1200 / 1200
Balance 700 / 700 1200 / 1200
Review of Systems
-
History Source: Patient
All other systems: Reviewed and negative
[2024-02-20 11:14] VITALS: BMI 22.3
[2024-02-20 11:34] VITALS: BP 166/93
--- NOTE | 2024-02-21 11:59 | PN.CDI ---
CDI
- -
CDI:
Physician Documentation Request
Admit Date: 02/15/24 10:31
Dear Doctor Louise,
Please review the following and provide your response in the progress notes.
Clinical Indicators:
- 02/19 Medical Radiation Tech note indicates severe protein calorie malnutrition
- Unintentional weight loss >5% in 1 month
- Poor nutrient intake <75% of estimated energy needs for >/= 1 month
Based on the information, which of the following most accurately represents the patient's nutritional status?
Severe protein calorie malnutrition
Other (please specify)
[place] Criteria ([facility] Hospitalist 2017)
2 or more criteria must be present for either
non severe or severe malnutrition
Note that the criteria differs related to the
presence of an acute or chronic illness
Acute Illness Chronic Illness
Energy Intake Non Severe: <75% for >7 days Non Severe: <75% for >1 month
Severe: <50% for >5 days Severe: <75% for >1 month
Weight Loss Non Severe: 1-2% over 1 week Non Severe: 5% over 1 month
5% over 1 month 7.5% over 3 months
7.5% over 3 months 10% over 6 months
1 year N/A 20% over 1 year
Severe: >2% over 1 week Severe: >5% over 1 month
>5% over 1 month >7.5% over 3 months
>7.5% over 3 months >10% over 6 months
1 year N/A >20% over 1 year
Body Fat Non Severe: Mild Decrease Non Severe: Mild Loss
Severe: Moderate Decrease Severe: Severe Loss
Muscle Mass Non Severe: Mild Decrease Non Severe: Mild Loss
Severe: Moderate Decrease Severe: Severe Loss
Fluid Accumulation Non Severe: Mild Accumulation Non Severe: Mild Accumulation
Severe: Moderate to severe Severe: Moderate to severe
accumulation accumulation
Reduced [place] Strength Non Severe: N/A Non Severe: N/A
Severe: Measurably reduced Severe: Measurably reduced
Additional criteria that can be used to Determine if Mild or Moderate Malnutrition ([employer] Manual 2018)
Mild Moderate Severe
Albumin gm/dl <3.0 gm/dl <2.5 gm/dl <2.0 gm/dl
Pre Albumin mg/dl <15 gm/dl <10 mg/dl <5.0 mg/dl
BMI <18.5 <17 <16
Use of terms such as suspected, likely, concern for, or probable (associated with a specific diagnosis that is being evaluated, monitored, or treated as if it exists) are acceptable and can be coded in the inpatient setting, when documented at the
time of discharge.
Thank you,
Abby Gates RN
CDI Specialist
Please use your independent medical judgment in providing your response.
== END 2024-02-20 11:35 | disposition home or self-care (01) | DRG 823 ==
LOC: 2 SOUTH 10:31
PROVIDERS: Hospitalist; Internal Medicine Gastroenterology; ADMITTING PHYSICIAN Internal Medicine; ATTENDING PHYSICIAN Hospitalist; CONSULT PHYSICIAN Internal Medicine Gastroenterology; CONSULT PHYSICIAN Internal Medicine Hematology & Oncology; CONSULT PHYSICIAN Surgery; EMERGENCY PHYSICIAN Emergency Medicine; FAMILY PHYSICIAN Family Medicine
PROC: 07BC4ZX Excision of Pelvis Lymphatic, Percutaneous Endoscopic Approach, Diagnostic (ICD-10-PCS; 2024-02-18)
PROC: BW41ZZZ Ultrasonography of Abdomen and Pelvis (ICD-10-PCS; 2024-02-18)
DX: C83.36 Diffuse large B-cell lymphoma, intrapelvic lymph nodes (principal); E43 Unspecified severe protein-calorie malnutrition; K85.10 Biliary acute pancreatitis without necrosis or infection; K81.0 Acute cholecystitis; E87.1 Hypo-osmolality and hyponatremia; K51.50 Left sided colitis without complications; R59.0 Localized enlarged lymph nodes; Z68.22 Body mass index [BMI] 22.0-22.9, adult
CPT/HCPCS: 88172; 88173; 88305; 71260; 74176; 74177; 74183; 80053; 81003; 83605; 83615; 83690; 84550; 85025; 85027; 85610; 87040; 88177; 88313; 88341; 88342; 88365; 93005; 96361; 96374; 96375; 99285; A9575; Q9967

== ENCOUNTER 2024-03-08 01:29 | Observation (INO) | payer OTHER, SELFPAY ==
[2024-03-07 20:13] VITALS: BP 172/114
--- NOTE | 2024-03-07 21:27 | ED.GENMED ---
History of Present Illness
General
Chief Complaint: Generalized Pain
Time Seen by Provider: 03/07/24 21:27
Travel History
Have you had any contact with someone who has COVID-19?: No
Do you have any symptoms of coronavirus? Fever > 100 degrees, chills, cough, shortness of breath, sore throat, loss of taste or smell, muscle aches, or headache?: No
History of Present Illness
History of Present Illness:
HPI: Patient presents with worsening abdominal pain. She was recently diagnosed with B-cell lymphoma after an abdominal CT showed lymphadenopathy. She recently started vomiting which is new. She had diarrhea in the past but more recently been
having constipation. There has been no improvement after glycerin suppository was used.
EXAM:
GENERAL: Well appearing but appears uncommon
HEENT: Moist oral mucosa
CARDIOVASCULAR: No murmurs, normal heart rate, regular rhythm, No chest wall tenderness
PULMONARY: No respiratory distress, breath sounds are clear and equal
ABDOMEN: Soft with no peritoneal signs, mild diffuse abdominal tenderness, empty rectal vault.
NEUROLOGIC: Excellent strength all extremities, no coordination deficits
PSYCHIATRIC: Appropriate mental status, normal insight and judgement
EXTREMITIES: Nontender, no edema, moves all extremities equally
SKIN: No rash, no lesions
TIME OF INITIAL ENCOUNTER: 9:30 PM
NUMBER AND COMPLEXITY OF PROBLEMS ADDRESSED AT THE ENCOUNTER
� Chronic conditions affecting care: Diffuse B-cell lymphoma
� Acute Exacerbation and/or Progression of Chronic Illness: This is an acute problem
� Differential Diagnosis includes: Opioid-induced constipation, bowel obstruction, worsening of malignancy
AMOUNT AND/OR COMPLEXITY OF DATA TO BE REVIEWED AND ANALYZED
� I performed an independent evaluation of and my interpretation is:
EKG:
CT: CT imaging shows significant amount of stool, lymphadenopathy again noted and similar to prior, radiologist report noted some mild diffuse gallbladder wall edema but felt unlikely be cholecystitis
X-rays:
Laboratory Studies: White count 6.4, hemoglobin normal, LFTs unremarkable
Other:
� Review of other/old records: Path report from recent FNA was consistent for diffuse large B-cell lymphoma
� Clinical information was obtained by an independent historian: I spoke to the at bedside.
� Prescriptions/Medications Considered but not given:
� Further testing considered but not performed:
RISK OF COMPLICATIONS AND/OR MORBIDITY OR MORTALITY OF PATIENT MANAGEMENT
� Social determinants of health affecting care: Lives at home
� Discussion with other providers: Hospitalist, Dr. Sandoval, for admission
� Escalation of care including admission/observation vs risk of discharge considered: The patient does appear uncomfortable in the setting of cancer diagnosis. Will give additional narcotic analgesia. Will also try Relistor as
she may have a component of opioid-induced constipation. She had an empty rectal vault on digital rectal examination. CT imaging reviewed and does show increased amount of stool. Constipation may be a contributing factor for pain however the pain
is not well-controlled without narcotic analgesia.
Past History
Past History
ED Past Medical History: Arrthythmia (SVT), HTN, Other (Ulcerative colitis maintained on Humira every 2 weeks. Seasonal allergies, oral/herpes labialis maintained on daily Valtrex suppressive therapy.) and Other (Osteoporosis)
ED Past Surgical History: Orthopedic (ORIF right shoulder, bunionectomy) and Other (Inguinal hernia repair)
Social History
Tobacco: Non-smoker
Alcohol: None
Personal:
Living: with family
Employment: Employed
Family History
Family History: Other (Nonremarkable)
Phy Exam
Physical Exam
Physical Exam:
See HPI
Course
Orders/Labs/Results
Orders:
Orders
03/07/24 21:37
0.9% Sodium Chloride 1000 ml [Nss] 1,000 ml IV BOLUS
HYDROmorphone [Dilaudid] 1 mg IV NOW STA
03/07/24 21:38
Ondansetron Injectable [Zofran] 4 mg IV NOW STA
03/07/24 21:42
CMP [Comprehensive Metabolic Panel] Urgent
Complete Blood Count/With Diff Urgent
03/07/24 22:00
Methylnaltrexone [place] [Relistor] 12 mg SC ONCE ONE
03/07/24 22:07
CT Abd/pelvis W Iv Cont Urgent
Comment:
Reason For Exam: worsening abd pain; recent dx lymphoma; Vomiting
03/07/24 22:54
HYDROmorphone [Dilaudid] 1 mg IV NOW STA
03/07/24 23:40
Polyethylene Glycol Powder [Miralax] 17 grams PO NOW STA
03/08/24 00:28
Ketorolac [Toradol] 15 mg IV NOW STA
03/08/24 08:00
Polyethylene Glycol Powder [Miralax] 17 grams PO DAILY
Abnormal Lab Results
03/07/24
21:42
RBC 3.86 L 10^6/uL
(4.20-5.40)
Hct 34.5 L %
(37.0-47.0)
MCH 32.4 H pg
(27.0-31.0)
Plt Count 570 H 10^3/uL
(130-400)
Absolute Lymphs (auto) 1.0 L 10^3/uL
(1.2-3.4)
Lymphocytes % 16.1 L %
(20.5-51.1)
Monocytes % 10.0 H %
(1.7-9.3)
Sodium 134 L mmol/L
(135-145)
BUN 19 H mg/dl
(7-17)
Glucose 120 H mg/dl
(70-99)
Calcium 10.3 H mg/dl
(8.4-10.2)
03/07/24 21:42
03/07/24 21:42
Vital Signs
Initial and Last Documented VS:
Initial Vital Signs
Pulse Resp BP Pulse Ox
102 24 172/114 100
03/07/24 20:13 03/07/24 20:13 03/07/24 20:13 03/07/24 20:13
Last Documented Vital Signs
Pulse Resp BP Pulse Ox
81 13 158/96 98
03/08/24 00:00 03/08/24 00:00 03/08/24 00:00 03/08/24 00:00
*Critical Care Note
Total Time (30-74mins, 75-104mins- exclusive of procedures): Not Applicable
ED Attending Note
-
Portions of this chart may have been created with voice recognition software.� Occasional wrong word or��sound alike� substitutions may have occurred due to the inherent limitations of voice recognition software.
Discharge Plan
Departure
Patient Disposition: Admit
Date of Disposition: 03/07/24
Time of Disposition: 23:30
Presentation/result/management discussed w/ accepting MD/DO: Hospitalist
Discharge Problem:
Intractable abdominal pain
Prescriptions:
No Action
multivitamin Tablet
1 tab PO DAILY
valacyclovir 500 mg Tablet
500 mg PO DAILY
metoprolol succinate 25 mg Tablet Extended Release 24 Hr
25 mg PO HS
loratadine [Claritin] 10 mg Tablet
10 mg PO DAILY
cholecalciferol (vitamin D3) [Vitamin D3] 125 mcg (5,000 unit) Tablet
125 mcg PO DAILY
Prolia 60 mg/mL Syringe
60 mg SC [id number]
Patient Comments:
02/15/2024, pt. is due for next dose on Saturday (02/21/2024) per pt.
PreserVision AREDS 4,296 mcg-226 mg-90 mg Capsule
1 cap PO DAILY
inulin-sorbitol 2 gram Tablet,Chewable
1 tab PO DAILY
ibuprofen 800 mg Tablet
800 mg PO Q6HPRN PRN (Reason: mild pain) Qty: 30 0RF
gabapentin 100 mg Capsule
200 mg PO HS Qty: 60 0RF
sennosides-docusate sodium [Stool Softener-Stimulant Laxat] 8.6-50 mg Tablet
1 tab PO BIDPRN PRN (Reason: constipation) Qty: 0 0RF
pantoprazole 40 mg Tablet,Delayed Release (Dr/Ec)
40 mg PO DAILY Qty: 30 0RF
oxycodone 5 mg Tablet
5 mg PO Q4HPRN PRN (Reason: MODERATE PAIN) Qty: 30 0RF
methylprednisolone [Medrol (Alfredito)] 4 mg Tablets,Dose Pack
0 mg PO PER PKG DIR
Referrals:
Jeb Armas, DO [Family Provider] -
Interventions
Interventions:
*Risk Screen - Suicide Last Done: 03/07/24 20:13
*General Assessment Last Done: 03/07/24 23:49
*Neglect/Abuse Screening Last Done: 03/07/24 20:13
ED- Fall Risk Assessment Last Done: 03/07/24 23:49
*ED COVID-19 Vaccine History Last Done: 03/07/24 23:49
HS-Ymiefe-Xyvdkdsbct Assessment Last Done: 03/07/24 21:54
Discharge Date and Time
Print Language: KHMER
[2024-03-07] MEDS: NSS 1000 IV (21:45)
[2024-03-07] MEDS: ZOFRAN 4 MG IV (21:46)
[2024-03-07 21:47] LABS: % Basophils 0.9 % (0-2); % Eosinophils 0.3 % (0-6); % Immature Granulocytes 0.2 % (0-0.5); % Lymphocytes 16.1 % (20.5-51.1); % Neutrophils 72.5 % (42.2-75.2); Absolute Basophils 0.1 10^3/uL (0-0.2); Absolute Monocytes 0.6 10^3/uL (0.1-0.6); Absolute Neutrophils 4.6 10^3/uL (1.4-6.5); Hematocrit 34.5 % (37.0-47.0); Hemoglobin 12.5 g/dL (12.0-16.0); Mean Corp Hgb Conc. 36.2 g/dL (33.0-37.0); Mean Corpuscular Hgb 32.4 pg (27.0-31.0); Mean Corpuscular Volume 89.4 fL (81.0-99.0); Mean Platelet Volume 8.8 fL (7.4-10.4); Nucleated Red Blood Cells % 0 %; Platelet Count 570 10^3/uL (130-400); Red Blood Cell Count 3.86 10^6/uL (4.20-5.40); Red Cell Dist. Width 11.8 % (11.5-14.5); White Blood Cell Count 6.4 10^3/uL (4.8-10.8)
[2024-03-07] MEDS: DILAUDID 1 MG IV ×2 (21:47→23:10)
[2024-03-07 22:00] LABS: ALT (SGPT) 15 U/L (0-35); AST (SGOT) 31 U/L (14-36); Albumin 4.4 g/dl (3.5-5.0); Alkaline Phosphatase 77 U/L (38-126); Blood Urea Nitrogen 19 mg/dl (7-17); Calcium 10.3 mg/dl (8.4-10.2); Carbon Dioxide 25 mmol/L (22-30); Chloride 99 mmol/L (98-107); Glucose 120 mg/dl (70-99); Potassium 3.5 mmol/L (3.5-5.1); Sodium 134 mmol/L (135-145); Total Bilirubin 0.5 mg/dl (0.2-1.3); Total Protein 7.3 g/dl (6.3-8.2); eGFR > 60.00
[2024-03-07] MEDS: RELISTOR 12 MG SC (22:50)
[2024-03-07 23:36] VITALS: BP 142/84
[2024-03-07] MEDS: MIRALAX 17 GRAMS PO (23:46)
[2024-03-08] VITALS: BP 158/96
--- NOTE | 2024-03-08 00:34 | HPS.HSE ---
Family Physician
-
Family Physician: Jeb Armas
Chief Complaint
-
Abd Pain
History of Present Illness
Patient is a 63y F with PMH significant for recently diagnosed DLBCL who presents to ED complaining of abdominal pain. Patient was previously admitted in February for similar symptoms and was newly diagnosed at that time with diffuse adenopathy and
lymphoma - later determined to be DLBCL. She is scheduled to meet with Oncology at [place] this coming Saturday. She has stopped her previous Humira (for ulcerative colitis) but has not yet started any active treatments for her lymphoma. Her pain
was fairly well controlled at the time of her recent discharge.
However, patient notes that her pain has steadily increased since that time. She has continued to take her prescribed pain regimen without significant improvement.
Pain is worse at night. No significant N/V. She notes that she has not had a BM in the past week at all.
Patient had been on a bowel regimen during her prior hospital stay, but notes that she was not taking these meds regularly at home.
She started taking Sennakot a few nights ago.
Medical History
Past Medical History
Past Medical History: Reports Other
Additional Past Medical History:
Ulcerative Colitis
SVT
Hypertension
Diffuse Large B-Cell Lymphoma
Melanoma
Past Surgical History: Reports Other
Additional Past Surgical History:
Bilateral Bunionectomy
Right Humerus ORIF
Hernia Repair
Melanoma Excision
Social History
Tobacco: Former Smoker
Alcohol: Occasional
Drug: None
Personal:
Living: With Family
Family History
Family History: Not pertinent
Allergies / Home Medications
Allergies reflects when Allergies were last updated in [facility].
Home Medications with original date entered in [facility]
Allergy/Medication List:
Allergies
Allergy/AdvReac Type Severity Reaction Status Date / Time
ciprofloxacin [From Cipro] Allergy Itching Verified 03/07/24 20:17
Home Medications
cholecalciferol (vitamin D3) 125 mcg (5,000 unit) tablet (Vitamin D3) 125 mcg PO DAILY Supplement 02/15/24
denosumab 60 mg/mL subcutaneous syringe (Prolia) 60 mg SC [id number] osteoporosis 02/15/24
inulin-sorbitol 2 gram chewable tablet 1 tab PO DAILY Supplement 02/15/24
loratadine 10 mg tablet (Claritin) 10 mg PO DAILY Allergies 02/15/24
metoprolol succinate 25 mg tablet,extended release 24 hr 25 mg PO HS Blood Pressure 02/15/24
multivitamin 1 tab PO DAILY Supplement 02/15/24
valacyclovir 500 mg tablet 500 mg PO DAILY anti-viral 02/15/24
vitamins A,C,S-ofob-ikuvjq 4,296 mcg-226 mg-90 mg capsule (PreserVision AREDS) 1 cap PO DAILY Supplement 02/15/24
gabapentin 100 mg capsule 200 mg (2 x 100 mg) PO HS #60 caps 02/20/24
ibuprofen 800 mg tablet 800 mg PO Q6HPRN PRN mild pain #30 tabs 02/20/24
oxycodone 5 mg tablet 5 mg PO Q4HPRN PRN MODERATE PAIN #30 tabs 02/20/24
pantoprazole 40 mg tablet,delayed release 40 mg PO DAILY #30 tabs 02/20/24
sennosides 8.6 mg-docusate sodium 50 mg tablet (Stool Softener-Stimulant Laxative) 1 tab PO BIDPRN PRN constipation #0 tabs 02/20/24
methylprednisolone 4 mg tablets in a dose pack (Medrol (Alfredito)) 0 mg PO PER PKG DIR 03/08/24
Review of Systems
-
History Source: Patient
A 12 point ROS was completed and negative except as noted: Yes
Constitutional: Reports Fatigue; Denies Fever or Chills
Respiratory: Denies Cough or Trouble Breathing
Cardiac: Denies Chest Pain or Palpitations
Abdomen/GI: Reports Abdominal Pain, Constipated and Anorexia; Denies Nausea, Vomiting, Diarrhea, Bloody Stools or Black Stools
: Denies Dysuria or Frequency
Neurological: Denies Dizzy or Headache
Psych: Denies Depression or Anxiety
Physical Exam
Vital Signs
Vital Signs
Pulse Resp BP Pulse Ox
81 13 158/96 98
03/08/24 00:00 03/08/24 00:00 03/08/24 00:00 03/08/24 00:00
Physical Exam
General: Other (63y F in mild distress due to abdominal pain.)
HEENT: Moist mucous membranes and PERRLA
Respiratory: Clear; No Wheezes, Rales or Rhonchi
Cardiac: S1/S2 and Regular Rhythm; No Murmur
GI: Other (Soft, pos BS. Diffusely tender without rebound.)
Musculoskeletal: No Clubbing, No Cyanosis and No Edema
Neuro: AO x 3
Laboratory Results
-
03/07/24 21:42
03/07/24 21:42
Laboratory Results
Total Bilirubin 0.5 mg/dl (0.2-1.3) 03/07/24 21:42
AST 31 U/L (14-36) 03/07/24 21:42
ALT 15 U/L (0-35) 03/07/24 21:42
Alkaline Phosphatase 77 U/L (38-126) 03/07/24 21:42
Impression/Plan
-
A/P: Patient is a 63y F with PMH significant for recently diagnosed DLBCL who presents to ED complaining of uncontrolled abdominal pain.
Intractable Abdominal Pain
DLBCL
Constipation
- Observe overnight for further evaluation and treatment.
- Current pain is likely multifactorial and due to lymphoma as well as constipation.
- Continue pain control efforts and adjust regimen as needed for adequate control.
- Begin / intensify bowel regimen with standing medications including BID Miralax for now.
- Follow for results.
- See below re: ulcerative colitis.
- Follow for clinical improvement.
- Patient has appointment for evaluation at [place] on Saturday and hopefully symptoms can be controlled with adjusted med regimen by that time.
Ulcerative Colitis
- Patient complains predominately of left-sided abdominal pain.
- CT shows proximal stool burden with collapsed distal / sigmoid colon.
- Will ask GI to evaluate.
- ? ulcerative colitis flare resulting in stricture which is contributing to pain and difficulty passing stools?
- Humira has been discontinued following lymphoma diagnosis.
Benign Hypertension
History of SVT
- Stable. Continue metoprolol.
DVT Prophylaxis: Lovenox
Code Status: Full
[2024-03-08 01:38] VITALS: BMI 22.4
[2024-03-08] MEDS: FLUSH (NSS) 2 FLUSH IV ×4 (01:44→18:19)
[2024-03-08] MEDS: TORADOL 15 MG IV (01:44)
[2024-03-08] MEDS: LR 1000 IV ×3 (01:58→22:15)
[2024-03-08] MEDS: DILAUDID 0.5 MG IV ×4 (02:00→22:16)
[2024-03-08 02:05] VITALS: BP 170/100
--- NOTE | 2024-03-08 03:00 | PTCARENOTE ---
Received patient from ED accompanied by her spouse. Lungs coarse, heart rate reg, no edema, positive pulses. BP was elevated with uncontrolled pain in abdomen wrapping around her back at 9/10 'and climbing'. Treated with Dilaudid and Toradol and IVF
were started. Patient oriented to the unit. Call sow in reach. Patient now sleeping.
[2024-03-08 03:07] VITALS: BP 170/100
[2024-03-08 07:01] LABS: Hematocrit 32.8 % (37.0-47.0); Hemoglobin 11.7 g/dL (12.0-16.0); Mean Corp Hgb Conc. 35.7 g/dL (33.0-37.0); Mean Corpuscular Hgb 32.8 pg (27.0-31.0); Mean Corpuscular Volume 91.9 fL (81.0-99.0); Mean Platelet Volume 9.5 fL (7.4-10.4); Platelet Count 562 10^3/uL (130-400); Red Blood Cell Count 3.57 10^6/uL (4.20-5.40); Red Cell Dist. Width 11.8 % (11.5-14.5); White Blood Cell Count 8.1 10^3/uL (4.8-10.8)
[2024-03-08 07:04] VITALS: BP 171/100
[2024-03-08 07:55] LABS: Blood Urea Nitrogen 13 mg/dl (7-17); Calcium 9.7 mg/dl (8.4-10.2); Carbon Dioxide 23 mmol/L (22-30); Chloride 99 mmol/L (98-107); Estimated Creatinine Clearance 88 ml/min; Glucose 90 mg/dl (70-99); Magnesium 1.8 mg/dl (1.6-2.3); Potassium 3.8 mmol/L (3.5-5.1); Sodium 136 mmol/L (135-145); eGFR > 60.00
[2024-03-08 08:16] LABS: TSH Reflex To Free T4 5.58 uIU/ml (0.47-4.68)
[2024-03-08 08:27] LABS: Erythrocyte Sed Rate 53 mm/hour (0-20)
[2024-03-08 08:40] LABS: Hepatitis C Antibody Negative (Negative)
[2024-03-08] MEDS: TYLENOL 1000 MG PO (08:44)
[2024-03-08] MEDS: MIRALAX 17 GRAMS PO ×2 (08:47→22:15)
[2024-03-08] MEDS: PROTONIX 40 MG PO (08:47)
[2024-03-08] MEDS: VALTREX 500 MG PO (08:47)
[2024-03-08] MEDS: CLARITIN 10 MG PO (08:47)
[2024-03-08] MEDS: ZOFRAN 4 MG IV ×3 (08:51→22:19)
[2024-03-08] MEDS: TORADOL 10 MG IV ×3 (08:52→22:18)
--- NOTE | 2024-03-08 08:55 | W.PN.HOSP.TC ---
Today's Communication/Plan
-
Bowel regimen
Antiemetics
Assessment / Plan
Assessment / Plan
Gen-AAOx3, moderate distress due to pain and nausea
HEENT-NC, AT, anicteric, clear oral mm
Neck-supple
CV-reg, no M, +S1/S2
Lungs-clear B/L
Abd-soft, nondistended, mildly tender diffusely
Ext-no edema
Musculoskeletal-no cyanosis, clubbing
Skin-warm and dry
Neuro-grossly non-focal
Psych-calm, cooperative
Severe constipation -last BM more than a week ago. Most likely due to opioid-induced constipation. No obstruction noted on CT scan. No bowel movement so far in the hospital. Give a dose of magnesium citrate. Try enema if no improvement. She
had a Dulcolax suppository prior to admission yesterday without any relief.
Persistent nausea -most likely due to constipation. Cannot rule out component of opioid induced nausea. Continue Zofran every 6 as needed. Clear liquid diet for now.
Diffuse large B-cell lymphoma -recent diagnosis last month. Has yet to start treatment. CT abdomen shows significant retroperitoneal lymphadenopathy and retrocrural lymphadenopathy with slight progression. She has an appointment to follow-up with
oncology at [facility] this Saturday.
Hyponatremia -present on admission. Resolved.
Hypercalcemia -present on admission, resolved.
Ulcerative colitis -stable. Doubt flareup.
Essential hypertension -hypertensive urgency related to persistent nausea, abdominal pain. Blood pressure 171/100 this morning. Continue antihypertensives, supportive care.
Hx SVT
Right thyroid lobe mass -will need outpatient follow-up.
Full code
Anticipated Discharge: > 48 hours
Subjective/Interval History
-
Date of Service: March 08, 2024
Patient seen and examined. Complaining of nausea, abdominal pain. Constipation.
Objective Data
-
Labs:
Laboratory Results
03/07/24 03/08/24
21:42 06:05
WBC 6.4 8.1
Hgb 12.5 11.7 L
Hct 34.5 L 32.8 L
Plt Count 570 H 562 H
Sodium 134 L 136
Potassium 3.5 3.8
Chloride 99 99
Carbon Dioxide 25 23
BUN 19 H 13
Creatinine 0.6 0.5 L
Glucose 120 H 90
Calcium 10.3 H 9.7
Total Bilirubin 0.5
AST 31
ALT 15
Alkaline Phosphatase 77
Vital Signs:
Vital Signs
Temp Pulse Resp BP Pulse Ox
97.9 F 86 18 171/100 93
03/08/24 07:04 03/08/24 07:04 03/08/24 07:04 03/08/24 07:04 03/08/24 07:04
I&O
03/07/24 03/08/24 03/09/24
06:59 06:59 06:59
Intake Total 740 / 740
Balance 740 / 740
Review of Systems
-
History Source: Patient
All other systems: Reviewed and negative
[2024-03-08] MEDS: COLACE 100 MG PO (08:57)
[2024-03-08] MEDS: CITROMA 300 ML PO (09:05)
--- NOTE | 2024-03-08 10:30 | PTCARENOTE ---
PT given mag citrate for constipation and nausea issue. Shortly thereafter pt proceeded to vomit up all the liquid she took in. refused enema stating the ED doctor said it was higher up in the bowel and enema would not work so she refused the
option. GI consult ordered. Discussed the option of an NGT to help eliminate her continuous nauseousness feeling. First she was agreeable then her states 'you don't want that , do you?' 'Well if will help she said, but I'll wait to se
the GI doctor.' Currently pt is less nauseated. Torodol was helpful. Will cont to monitor and await GI....
--- NOTE | 2024-03-08 11:14 | CON.GI ---
Consultation
-
Date/Time Consultation Requested: 03/08/2024, 10:30am
Date/Time Consultation Performed: 03/08/2024, 5:45pm
Requesting Provider: Dr. Gil
Performing Provider: Dr. Stewart
Reason for Consultation: constipation
Medical History
Chief Complaint / HPI
Chief Complaint: abdominal pain
History of Present Illness:
This is a 63-year-old female with recent diagnosis of diffuse large B-cell lymphoma, ulcerative colitis who has been on Humira for more than 10 years, melanoma follows with Dr. Saravia from oncology who presented initially February [address] was done and showed extensive lymphadenopathy. She underwent an endoscopic ultrasound with Dr. Connor February 17 with FNA positive for malignancy and ultimately was diagnosed with a diffuse large B-cell lymphoma. Pain at that point was
controlled with narcotics and patient was discharged with plans to follow-up with [facility] and [facility]. She now comes in again with severe abdominal pain with her bowel movement being more than 1 week ago. Thought to likely be due to opioid-induced
constipation but likely also due to her DLBCL. She underwent a CT scan yesterday in the emergency room which showed the lymphadenopathy similar to prior, small nonobstructing renal calculus, decreased gallbladder edema, hepatic Charlene portal
hypodensity most likely secondary to intravenous hydration. The primary team has given her a dose of magnesium citrate and was given a Dulcolax suppository prior to admission yesterday without any relief. Also got a dose of relistor 03/07.
She states she has severe abd pain every night since prior to her last admission. + nausea/vomiting.
Past Medical History
Past Medical History: Arrhythmias (svt), HTN and Other (UC on humira, osteoporosis)
Past Surgical History: Orthopedic and Other (hernia)
Social History
Tobacco: Former Smoker
Alcohol: Occasional
Drug: None
Family History
Family History: Reviewed & Not Pertinent
Allergies / Home Medications
Allergy/AdvReac Type Severity Reaction Status Date / Time
ciprofloxacin [From Cipro] Allergy Itching Verified 03/07/24 20:17
�Medication �Instructions �Recorded
cholecalciferol (vitamin D3) 125 125 mcg PO DAILY Supplement 02/15/24
mcg (5,000 unit) tablet (Vitamin
D3)
denosumab 60 mg/mL subcutaneous 60 mg SC [id number] osteoporosis 02/15/24
syringe (Prolia)
inulin-sorbitol 2 gram chewable 1 tab PO DAILY Supplement 02/15/24
tablet
loratadine 10 mg tablet (Claritin) 10 mg PO DAILY Allergies 02/15/24
metoprolol succinate 25 mg 25 mg PO HS Blood Pressure 02/15/24
tablet,extended release 24 hr
multivitamin 1 tab PO DAILY Supplement 02/15/24
valacyclovir 500 mg tablet 500 mg PO DAILY anti-viral 02/15/24
vitamins A,C,L-blmk-cirlft 4,296 1 cap PO DAILY Supplement 02/15/24
mcg-226 mg-90 mg capsule
(PreserVision AREDS)
gabapentin 100 mg capsule 200 mg (2 x 100 mg) PO HS #60 caps 02/20/24
ibuprofen 800 mg tablet 800 mg PO Q6HPRN PRN mild pain #30 02/20/24
tabs
oxycodone 5 mg tablet 5 mg PO Q4HPRN PRN MODERATE PAIN 02/20/24
#30 tabs
pantoprazole 40 mg tablet,delayed 40 mg PO DAILY #30 tabs 02/20/24
release
sennosides 8.6 mg-docusate sodium 1 tab PO BIDPRN PRN constipation 02/20/24
50 mg tablet (Stool #0 tabs
Softener-Stimulant Laxative)
methylprednisolone 4 mg tablets in 0 mg PO PER PKG DIR 03/08/24
a dose pack (Medrol (Alfredito))
Review of Systems
-
All other systems: A 12 pt ROS was Negative except as stated above in HPI
Vital Signs
Temp Pulse Resp BP Pulse Ox
97.9 F 86 18 171/100 93
03/08/24 07:04 03/08/24 07:04 03/08/24 07:04 03/08/24 07:04 03/08/24 08:00
Physical Exam
Exam
General: Well Developed
HEENT: Normocephalic
Respiratory: Clear
Cardiac: S1/S2
GI: Tender and Distended
Skin: Warm
Neuro: AO x 3
Hematologic/Lymphatic: Lymphadenopathy
Psych: Calm
Results
WBC 8.1 10^3/uL (4.8-10.8) 03/08/24 06:05
Hgb 11.7 g/dL (12.0-16.0) L 03/08/24 06:05
Hct 32.8 % (37.0-47.0) L 03/08/24 06:05
MCV 91.9 fL (81.0-99.0) 03/08/24 06:05
Plt Count 562 10^3/uL (130-400) H 03/08/24 06:05
Absolute Neuts (auto) 4.6 10^3/uL (1.4-6.5) 03/07/24 21:42
Sodium 136 mmol/L (135-145) 03/08/24 06:05
Potassium 3.8 mmol/L (3.5-5.1) 03/08/24 06:05
Chloride 99 mmol/L (98-107) 03/08/24 06:05
Carbon Dioxide 23 mmol/L (22-30) 03/08/24 06:05
BUN 13 mg/dl (7-17) 03/08/24 06:05
Creatinine 0.5 mg/dL (0.6-1.0) L 03/08/24 06:05
Calcium 9.7 mg/dl (8.4-10.2) 03/08/24 06:05
Total Bilirubin 0.5 mg/dl (0.2-1.3) 03/07/24 21:42
AST 31 U/L (14-36) 03/07/24 21:42
ALT 15 U/L (0-35) 03/07/24 21:42
Alkaline Phosphatase 77 U/L (38-126) 03/07/24 21:42
Hepatitis C Antibody Negative (Negative) 03/08/24 06:05
Diagnostic Image Results:
Prior GI Procedures:
EGD:
Colonoscopy:
Assessment / Plan
-
63-year-old female past medical history of ulcerative colitis on Humira with recent diagnosis of diffuse large B-cell lymphoma p/w abd pain likely multifactorial (opiate induced constipation + DLBCL).
Plan for trial of Amitiza. If ongoing constipation, will give another dose of Relistor tomorrow.
Recommend minimizing narcotics. We did discuss NSAIDs are not ideal with IBD but perhaps alternating them would be the best option.
In regards to her diffuse large B-cell lymphoma, she has an appointment at [place] on Saturday. Family is asking to be transferred to [place] so they can initiate treatment for her DLBCL as her pain has been so severe. I sent a message to Dr. Miranda
updating him to initiate transfer tomorrow.
In regards to her ulcerative colitis, we did discuss there are other treatment options for ulcerative colitis that do not have a cancer risk associated with it such as vedolizumab. She follows at [facility] but is thinking of transferring her care to
[place]. She is currently off her Humira. I provided her my business card if she does wish to transfer care. Currently asymptomatic from UC will see what occurs at [place].
-
-
Thank you for consultation and allowing me to participate in the patient's care. Please call the personal care service provider GI physician during the after hours with any questions or concerns.
--- NOTE | 2024-03-08 11:34 | CM ---
CM following re: discharge planning.
Reviewed pt's chart, met with pt.
Pt is a 63 year old female, admitted with OBS status and primary dx of nausea, vomiting, abdominal pain, constipation. OBS status explained to the pt, pt expressed her understanding, OBS letter signed, placed on chart, pt has a copy.
Pt reports she livers with and a son in a 2SH 2 steps to enter, has 3 supportive children. 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
PCP: Jeb Armas
Pharmacy: [facility]
D/C plan: home with anticipated no needs. Family to transport at discharge.
CM will follow with discharge plan updates as hospitalization progresses
[2024-03-08] MEDS: FLUSH (NSS) 1 FLUSH IV (12:43)
[2024-03-08 16:10] VITALS: BP 161/101
[2024-03-08] MEDS: TYLENOL PO ×2 (16:37→22:26)
[2024-03-08] MEDS: LOVENOX 40 MG SC (16:37)
[2024-03-08] MEDS: BENADRYL 50 MG PO (21:21)
[2024-03-08] MEDS: NEURONTIN 300 MG PO (21:21)
[2024-03-08] MEDS: MELATONIN 5 MG PO (21:21)
[2024-03-08] MEDS: SENOKOT 17.1999999999999993 MG PO (21:22)
[2024-03-08] MEDS: AMITIZA 24 MCG PO (21:23)
[2024-03-08] MEDS: COLACE PO (21:27)
[2024-03-08 23:19] VITALS: BP 135/91
[2024-03-08] MEDS: TOPROL XL 25 MG PO (23:39)
[2024-03-09] MEDS: DILAUDID 0.5 MG IV ×2 (02:55→07:29)
[2024-03-09] MEDS: TORADOL 10 MG IV ×3 (04:27→20:53)
[2024-03-09 07:30] VITALS: BP 137/96
[2024-03-09] MEDS: LR 1000 IV (07:32)
[2024-03-09] MEDS: CLARITIN 10 MG PO (08:27)
[2024-03-09] MEDS: VALTREX 500 MG PO (08:27)
[2024-03-09] MEDS: PROTONIX 40 MG PO (08:27)
[2024-03-09] MEDS: AMITIZA 24 MCG PO ×2 (08:27→20:53)
[2024-03-09] MEDS: COLACE 100 MG PO ×2 (08:28→20:53)
[2024-03-09] MEDS: MIRALAX 17 GRAMS PO (08:30)
[2024-03-09] MEDS: TYLENOL PO (08:40)
[2024-03-09] MEDS: TYLENOL 1000 MG PO ×3 (08:42→22:02)
[2024-03-09] MEDS: ZOFRAN 4 MG IV ×2 (08:42→18:02)
--- NOTE | 2024-03-09 10:09 | W.PN.GI.CBS2 ---
Addendum entered and electronically signed by Blayne Stewart MD 03/09/24 10:47:
I saw and examined the patient.
The [employer] TECHNICIAN or PA's note was reviewed and I agree with the note.
Comment: 63 yo F pmh UC on humira, melanoma, recent diagnosis of DLBCL here with pain and constipation.
Plan for enema and then miralax if constipation persist (pt able to tolerate)
Will hold off on relistor - no help first time some risk of perf with IBD reported
On clears as continues to improve can advance diet
Family requesting transfer to [place] for onc care d/w hospitalist
Original Note:
Today's Communication / Plan
-
Tapwater enema x 1. Continue bowel regimen. Monitor for stool response. Consider repeat imaging if pain worsens/leukocytosis/fevers.
Assessment / Plan
-
The pt is a 63-year-old female with a past medical history significant for ulcerative colitis on Humira, HTN, SVT, osteoporosis, melanoma in situ, recent diagnosis of diffuse large B-cell lymphoma who presented to the ER with complaints of ongoing
abd pain. CT A/P showing findings consistent with known dx of DLBCL with significant stool burden Pain is likely multifactorial (opiate induced constipation + DLBCL). Given relistor x 1 dose and started on bowel regimen with Amitiza, colace, senna.
She was started on CLD.
Problem list:
-constipation
-Recent diagnosis of diffuse large B-cell lymphoma
-hx UC on Humira
-osteoporosis
-HTN
-Hx SVT
-hx melanoma in situ
Recommendations:
-Etiology abdominal pain likely multifactorial given diffuse DLBCL, opioid use, constipation, versus other.
-Continue bowel regimen as ordered, will add an enema to see if this can move things along. Will hold off on additional dose of Relistor at this time
-Will check CBC to ensure that her white blood cell count is not rising given her left lower quadrant pain, if any significant leukocytosis to consider repeat CT with oral contrast
-Hospitalist to follow-up on possible transfer to [place] as per request from the patient and her
-PRN analgesics as ordered
-Continue clear liquid diet for now
-Noted with elevated ESR 53, unlikely related to her ulcerative colitis given her symptoms.
-Will follow
Subjective
Subjective
Date of Service: March 09, 2024
The patient was seen and examined at the bedside. She reports her nausea is improved but continues with abdominal pain, more significant in the left lower quadrant. She is moving gas but has not had a bowel movement. No documented fevers but she
does admit to chills/night sweats which have been ongoing.
Objective
Data Reviewed
Laboratory Data:
Laboratory Results
03/08/24 06:05
03/08/24 06:05
Laboratory Results
Magnesium 1.8 mg/dl (1.6-2.3) 03/08/24 06:05
Total Bilirubin 0.5 mg/dl (0.2-1.3) 03/07/24 21:42
AST 31 U/L (14-36) 03/07/24 21:42
ALT 15 U/L (0-35) 03/07/24 21:42
Alkaline Phosphatase 77 U/L (38-126) 03/07/24 21:42
Vital Signs and I&O:
Vital Signs
Temp Pulse Resp BP Pulse Ox
98.5 F 95 16 137/96 96
03/09/24 07:30 03/09/24 07:30 03/09/24 07:30 03/09/24 07:30 03/09/24 07:30
I&O
03/08/24 03/09/24 03/10/24
06:59 06:59 06:59
Intake Total 740 / 740 2300 / 2300
Balance 740 / 740 2300 / 2300
Physical Exam
Physical Exam
HEENT: Anicteric
Cardiology: S1 and S2 (regular rate/rhythm)
Pulmonary: Clear
GI: Soft, Non Distended and Tender (generalized TTP throughout abdomen more so in the LLQ)
Extremities: No Edema
Neuro: Non Focal
[2024-03-09 10:42] LABS: Hematocrit 34.5 % (37.0-47.0); Hemoglobin 12.4 g/dL (12.0-16.0); Mean Corp Hgb Conc. 35.9 g/dL (33.0-37.0); Mean Corpuscular Hgb 32.5 pg (27.0-31.0); Mean Corpuscular Volume 90.3 fL (81.0-99.0); Mean Platelet Volume 8.8 fL (7.4-10.4); Platelet Count 573 10^3/uL (130-400); Red Blood Cell Count 3.82 10^6/uL (4.20-5.40); Red Cell Dist. Width 11.8 % (11.5-14.5); White Blood Cell Count 7.9 10^3/uL (4.8-10.8)
[2024-03-09] MEDS: MIRALAX 51 GRAMS PO ×2 (11:55→16:09)
[2024-03-09] MEDS: DILAUDID 2 MG PO (13:50)
[2024-03-09 14:17] VITALS: BMI 22.4
--- NOTE | 2024-03-09 15:59 | CM ---
Reviewed the chart notes. Patient to follow-up with [facility] for onc care. CM continues to be available to patient/family and is monitoring medical plan for needs at discharge.
Plan: Discharge to home with no additional needs being identified at this time.
[2024-03-09 16:40] VITALS: BP 171/115
[2024-03-09 16:41] VITALS: BP 170/102; BP 170/113
--- NOTE | 2024-03-09 16:42 | PTCARENOTE ---
Patient's BP taken by this RN 171/115 HR 71 LUE, repeat in RUE 170/113 HR 71. Manual taken by this RN - 170/102 RUE. Patient states no complaints, states abd/lower back pain is at a 4/10 and denies need for pain medication at this time. MD made
aware, stated okay to observe at this time.
--- NOTE | 2024-03-09 17:28 | W.PN.HOSP.TC ---
Today's Communication/Plan
-
Continue bowel regimen.
Advance diet to full liquid.
Continue current analgesic regimen.
Assessment / Plan
Assessment / Plan
Persistent abdominal pain likely multifactorial and due to abdominal lymphadenopathy and constipation
Severe constipation -last BM more than a week ago. Most likely due to opioid-induced constipation. No obstruction noted on CT scan. No bowel movement so far in the hospital. Give a dose of magnesium citrate. Continue other bowel regimen as per
GI
Persistent nausea -most likely due to constipation. Cannot rule out component of opioid induced nausea. Continue Zofran every 6 as needed. Clear liquid diet for now.
Diffuse large B-cell lymphoma -recent diagnosis last month. Has yet to start treatment. CT abdomen shows significant retroperitoneal lymphadenopathy and retrocrural lymphadenopathy with slight progression. She has an appointment to follow-up with
oncology at [facility] this Saturday.
Hyponatremia -present on admission. Resolved.
Hypercalcemia -present on admission, resolved.
Ulcerative colitis -stable. Doubt flareup.
Essential hypertension -hypertensive urgency related to persistent nausea, abdominal pain. Blood pressure 171/100 this morning. Continue antihypertensives, supportive care.
Hx SVT
Right thyroid lobe mass -will need outpatient follow-up.
Full code
Anticipated Discharge: 24 - 48 hours
Subjective/Interval History
-
Date of Service: March 09, 2024
Objective Data
-
Labs:
Laboratory Results
03/09/24
10:27
WBC 7.9
Hgb 12.4
Hct 34.5 L
Plt Count 573 H
Vital Signs:
Vital Signs
Temp Pulse Resp BP Pulse Ox
98.5 F 71 16 170/102 96
03/09/24 07:30 03/09/24 16:41 03/09/24 07:30 03/09/24 16:41 03/09/24 10:56
I&O
03/08/24 03/09/24 03/10/24
06:59 06:59 06:59
Intake Total 740 / 740 2299 / 2299
Balance 740 / 740 2299 / 2299
Physical Exam
-
General: Well Developed and No Apparent Distress
HEENT: Normocephalic, Atraumatic and Moist Mucous Membranes
Respiratory: Clear to Auscultation
Cardiac: Regular Rhythm and S1/S2; Negative Murmur, Rub or Gallop
GI: Soft, Nontender, Nondistended and Normal Bowel Sounds; Negative Organomegaly
Rectal: Deferred by Provider
Musculoskeletal: No Clubbing, No Cyanosis and No Edema
Skin: Negative Rash
Neuro: Nonfocal/Grossly Intact
[2024-03-09] MEDS: LOVENOX 40 MG SC (17:57)
[2024-03-09] MEDS: ROXICODONE 10 MG PO ×2 (18:01→22:01)
[2024-03-09] MEDS: BENADRYL 50 MG PO (22:02)
[2024-03-09] MEDS: SENOKOT 17.1999999999999993 MG PO (22:02)
[2024-03-09] MEDS: MELATONIN 5 MG PO (22:02)
[2024-03-09] MEDS: NEURONTIN 300 MG PO (22:02)
[2024-03-09] MEDS: TOPROL XL 25 MG PO (23:15)
[2024-03-09] MEDS: MIRALAX PO (23:18)
[2024-03-09 23:36] VITALS: BP 130/88
[2024-03-10] MEDS: ROXICODONE 10 MG PO ×3 (02:01→10:43)
[2024-03-10] MEDS: TORADOL 10 MG IV ×2 (03:14→09:19)
[2024-03-10 07:20] VITALS: BP 136/94
[2024-03-10] MEDS: AMITIZA 24 MCG PO (08:16)
[2024-03-10] MEDS: TYLENOL 1000 MG PO (08:16)
[2024-03-10] MEDS: CLARITIN 10 MG PO (08:17)
[2024-03-10] MEDS: PROTONIX 40 MG PO (08:17)
[2024-03-10] MEDS: VALTREX 500 MG PO (08:17)
[2024-03-10] MEDS: COLACE PO (08:18)
--- NOTE | 2024-03-10 09:46 | W.PN.GI.CBS2 ---
Addendum entered and electronically signed by Dory Johnston DO 03/10/24 10:38:
I saw and examined the patient.
The CLERK TYPIST or PA's note was reviewed and I agree with the note.
Comment: Patient with significant improvement following large BM overnight. Feels well and would like to go home. She is tolerating a full liquid diet and wants to advance. Okay for discharge from a GI perspective, discussed bowel regimen at length
with patient. She has oncology appointment with [facility] tomorrow. Will set her up for GI follow-up upon discharge. Will sign off, please call with questions.
Original Note:
Today's Communication / Plan
-
Bowel regimen with Amitiza 24 mcg twice daily and daily MiraLAX versus magnesium. Advance diet as tolerated. Okay for discharge from GI standpoint, will sign off call back for questions or concerns
Assessment / Plan
-
The pt is a 63-year-old female with a past medical history significant for ulcerative colitis on Humira, HTN, SVT, osteoporosis, melanoma in situ, recent diagnosis of diffuse large B-cell lymphoma who presented to the ER with complaints of ongoing
abd pain. CT A/P showing findings consistent with known dx of DLBCL with significant stool burden Pain is likely multifactorial (opiate induced constipation + DLBCL). Given relistor x 1 dose and started on bowel regimen with Amitiza, colace, senna.
03/10/24: She moved her bowels last night and is feeling well. Tolerating FLD.
Problem list:
-constipation
-Recent diagnosis of diffuse large B-cell lymphoma
-hx UC on Humira
-osteoporosis
-HTN
-Hx SVT
-hx melanoma in situ
Recommendations:
-Etiology abdominal pain likely multifactorial given diffuse DLBCL, opioid use, constipation, versus other.
---Pain improved after bowel clean out.
-She should continue on a bowel regimen with Amitiza 24 mcg twice daily along with 1 capful MiraLAX daily. She can also use magnesium nightly as this will also help with sleep. Advised to adjust bowel regimen based on stool response. Myself and
Dr. Johnston discussed bowel regimen with her at the bedside.
-She will follow-up with us as needed, and call our office to establish care after she initiates care for her lymphoma at [place] which she has an appointment for tomorrow. She has our card and information left on the discharge record.
-PRN analgesics as per hospitalist
-Will advance her diet to low residue, and after discharge can advance as tolerated
-Advised her to stay adequately hydrated
-No new recommendations at this time, okay for discharge from GI standpoint. Will sign off please call back with questions or concerns.
Subjective
Subjective
Date of Service: March 10, 2024
The pt was seen and examined at the bedside. She reports she feels well and moved her bowels significant last night. She denies any significant pain currently.
Objective
Data Reviewed
Laboratory Data:
Laboratory Results
03/09/24 10:27
03/08/24 06:05
Laboratory Results
Magnesium 1.8 mg/dl (1.6-2.3) 03/08/24 06:05
Total Bilirubin 0.5 mg/dl (0.2-1.3) 03/07/24 21:42
AST 31 U/L (14-36) 03/07/24 21:42
ALT 15 U/L (0-35) 03/07/24 21:42
Alkaline Phosphatase 77 U/L (38-126) 03/07/24 21:42
Vital Signs and I&O:
Vital Signs
Temp Pulse Resp BP Pulse Ox
98.4 F 103 16 136/94 99
03/10/24 07:20 03/10/24 07:20 03/10/24 07:20 03/10/24 07:20 03/10/24 07:20
I&O
03/09/24 03/10/24 03/11/24
06:59 06:59 06:59
Intake Total 2300 / 2300 2640 / 2639
Balance 2299
Physical Exam
Physical Exam
HEENT: Anicteric
Cardiology: S1 and S2 (regular rate/rhythm)
Pulmonary: Clear
GI: Soft, Distended, Non Tender and Normal Bowel Sounds
Extremities: No Edema
Neuro: Non Focal
--- NOTE | 2024-03-10 12:15 | W.DS.TRANS ---
DC Summary - Machine Sander
-
Discharge Instructions:
Discharge Diagnosis/Procedures Abdominal pain
B cell lymphoma
Diet Regular
Instructions:
Stand-Alone Forms:
Changes to Home Medications: Yes
Discharge Medications:
DC Medications w/original date entered in [facility]
cholecalciferol (vitamin D3) 125 mcg (5,000 unit) tablet (Vitamin D3) 125 mcg PO DAILY Supplement 02/15/24
denosumab 60 mg/mL subcutaneous syringe (Prolia) 60 mg SC [id number] osteoporosis 02/15/24
inulin-sorbitol 2 gram chewable tablet 1 tab PO DAILY Supplement 02/15/24
loratadine 10 mg tablet (Claritin) 10 mg PO DAILY Allergies 02/15/24
metoprolol succinate 25 mg tablet,extended release 24 hr 25 mg PO HS Blood Pressure 02/15/24
multivitamin 1 tab PO DAILY Supplement 02/15/24
valacyclovir 500 mg tablet 500 mg PO DAILY anti-viral 02/15/24
vitamins A,C,Q-ebli-gbekqt 4,296 mcg-226 mg-90 mg capsule (PreserVision AREDS) 1 cap PO DAILY Supplement 02/15/24
gabapentin 100 mg capsule 200 mg (2 x 100 mg) PO HS #60 caps 02/20/24
oxycodone 5 mg tablet 5 mg PO Q4HPRN PRN MODERATE PAIN #30 tabs 02/20/24
pantoprazole 40 mg tablet,delayed release 40 mg PO DAILY #30 tabs 02/20/24
sennosides 8.6 mg-docusate sodium 50 mg tablet (Stool Softener-Stimulant Laxative) 1 tab PO BIDPRN PRN constipation #0 tabs 02/20/24
docusate sodium 100 mg capsule 100 mg PO BID #60 caps 03/10/24
lubiprostone 24 mcg capsule 24 mcg PO BID #30 caps 03/10/24
Home Medication Changes
Bowel regimen
Pending Results: No
[2024-03-10 12:44] VITALS: BP 120/72
--- NOTE | 2024-03-10 13:09 | CM ---
Reviewed the chart notes. Patient is being discharged to home today with no additional needs being identified. CM continues to be available to patient/family and is monitoring medical plan for needs at discharge.
Plan: Discharge to home today.
== END 2024-03-10 13:18 | disposition home or self-care (01) ==
LOC: 2 NORTH 01:29
PROVIDERS: Emergency Medicine; Nurse Practitioner Family; ADMITTING PHYSICIAN Hospitalist; ATTENDING PHYSICIAN Internal Medicine; CONSULT PHYSICIAN Internal Medicine Gastroenterology; EMERGENCY PHYSICIAN Emergency Medicine; FAMILY PHYSICIAN Family Medicine
DX: K59.00 Constipation, unspecified (principal); R10.32 Left lower quadrant pain; C83.30 Diffuse large B-cell lymphoma, unspecified site; R59.0 Localized enlarged lymph nodes; R11.2 Nausea with vomiting, unspecified; I16.0 Hypertensive urgency; E07.89 Other specified disorders of thyroid; R70.0 Elevated erythrocyte sedimentation rate; I10 Essential (primary) hypertension; M81.0 Age-related osteoporosis without current pathological fracture; B00.1 Herpesviral vesicular dermatitis; K51.90 Ulcerative colitis, unspecified, without complications; N28.1 Cyst of kidney, acquired; N20.0 Calculus of kidney; E87.1 Hypo-osmolality and hyponatremia; E83.52 Hypercalcemia; Z85.820 Personal history of malignant melanoma of skin; Z86.79 Personal history of other diseases of the circulatory system; Z87.891 Personal history of nicotine dependence; Z88.1 Allergy status to other antibiotic agents; Z79.624 Long term (current) use of inhibitors of nucleotide synthesis; Z87.442 Personal history of urinary calculi
CPT/HCPCS: 74177; 80048; 80053; 83735; 84439; 84443; 85025; 85027; 85652; 86803; 96361; 96372; 96374; 96375; 96376; 99285; G0378; Q9967

== ENCOUNTER → 2024-10-19 09:45 | Outpatient (REF) | payer MEDICARE, OTHER, SELFPAY | LOC: RAD 09:45 | PROVIDERS: ATTENDING PHYSICIAN Family Medicine | DX: E28.319 Asymptomatic premature menopause (principal) | CPT/HCPCS: 77080 ==

== ENCOUNTER → 2024-11-16 10:24 | Outpatient (REF) | payer MEDICARE, OTHER, SELFPAY | LOC: HWWDC 10:24 | PROVIDERS: ATTENDING PHYSICIAN Family Medicine | DX: Z12.31 Encounter for screening mammogram for malignant neoplasm of breast (principal) | CPT/HCPCS: 77063; 77067 ==

== ENCOUNTER → 2024-12-03 09:06 | Outpatient (REF) | payer MEDICARE, OTHER, SELFPAY | LOC: RCS 09:06 | PROVIDERS: ATTENDING PHYSICIAN Internal Medicine Cardiovascular Disease; FAMILY PHYSICIAN Family Medicine | DX: R06.09 Other forms of dyspnea (principal); C83.30 Diffuse large B-cell lymphoma, unspecified site; Z92.21 Personal history of antineoplastic chemotherapy | CPT/HCPCS: 93306; 93356 ==

== ENCOUNTER 2025-01-04 10:02 | Emergency (ER) | payer MEDICARE, OTHER, SELFPAY ==
[2025-01-04 10:04] VITALS: BP 167/102
--- NOTE | 2025-01-04 10:23 | ED.GENMED ---
History of Present Illness
General
Chief Complaint: Abdominal Symptoms
Source: patient
Exam Limitations: none
Time Seen by Provider: 01/04/25 10:15
History of Present Illness
History of Present Illness:
64-year-old female with history of B-cell lymphoma presents complaining of relatively sudden onset right lower abdominal and flank pain with associated nausea and increased bowel movements. She has had multiple bowel movements this morning to have
been formed and nonbloody. The pain is worse with motion. She denies any chest pain or shortness of breath. No prior abdominal surgical history.
Past History
Past History
ED Past Medical History: Arrthythmia (SVT), HTN, Other (Ulcerative colitis maintained on Humira every 2 weeks. Seasonal allergies, oral/herpes labialis maintained on daily Valtrex suppressive therapy.) and Other (Osteoporosis)
ED Past Surgical History: Orthopedic (ORIF right shoulder, bunionectomy) and Other (Inguinal hernia repair)
Social History
Tobacco: Non-smoker
Alcohol: None
Personal:
Living: with family
Employment: Employed
Family History
Family History: Other (Nonremarkable)
Phy Exam
Physical Exam
Physical Exam:
General: Uncomfortable appearing female no acute respiratory distress
HEENT: Normocephalic atraumatic
Heart: Regular rate and rhythm no murmurs
Lungs: Clear no wheeze
Abdomen is soft tender to the right mid and lower abdomen as well as the right costovertebral angle. No guarding rebound normal bowel sounds nondistended
Extremities: No cyanosis or edema
Skin: Warm no rash
Course
Orders/Labs/Results
Orders:
Orders
01/04/25 10:21
0.9% Sodium Chloride 1000 ml [Nss] 1,000 ml IV BOLUS
Ketorolac [Toradol] 15 mg IV NOW STA
Ondansetron Injectable [Zofran] 4 mg IV NOW STA
01/04/25 10:22
CT Abd/pelvis W Iv Cont Urgent
Comment:
Reason For Exam: right abdominal/flank pain
01/04/25 10:37
Complete Blood Count/With Diff Urgent
Comprehensive Metabolic Panel Urgent
01/04/25 10:43
HYDROmorphone [Dilaudid] 0.5 mg IV NOW STA
01/04/25 11:55
Urinalysis Reflex To Culture Urgent
Date Specimen was Collected: 01/04/25
Time Specimen was Collected: 11:52
Urine Microscopic Reflex Cult Urgent
Abnormal Lab Results
01/04/25 01/04/25
10:37 11:55
RBC 3.97 L 10^6/uL
(4.20-5.40)
MCH 34.3 H pg
(27.0-31.0)
Absolute Neuts (auto) 7.5 H 10^3/uL
(1.4-6.5)
Neutrophils % 78.1 H %
(42.2-75.2)
Lymphocytes % 12.8 L %
(20.5-51.1)
Carbon Dioxide 20 L mmol/L
(22-30)
BUN 22 H mg/dl
(7-17)
Glucose 139 H mg/dl
(70-99)
Urine Ketones 2+ A
(Negative)
Ur Occult Blood Reflex 4+ A
(Negative)
Urine RBC 30-40 A /HPF
(0-2)
Urine Albumin (Reflex) 1+ A
(Neg - Trace)
01/04/25 10:37
01/04/25 10:37
Vital Signs
Initial and Last Documented VS:
Initial Vital Signs
Temp Pulse Resp BP Pulse Ox
97.5 F 87 16 167/102 98
01/04/25 10:04 01/04/25 10:04 01/04/25 10:04 01/04/25 10:04 01/04/25 10:04
Last Documented Vital Signs
Temp Pulse Resp BP Pulse Ox
97.4 F 78 18 167/102 100
01/04/25 10:30 01/04/25 11:15 01/04/25 11:15 01/04/25 10:04 01/04/25 11:15
MDM/Problems Addressed
Differential Diagnosis Includes:
Right mid abdominal and lower abdominal with flank pain. Consider renal colic versus constipation versus ulcerative colitis flare. History of B-cell lymphoma in remission not currently receiving any treatment.
IV team called to access port. Labs ordered urinalysis ordered treat symptoms with Zofran fluids Toradol. CT pending
*Critical Care Note
Total Time (30-74mins, 75-104mins- exclusive of procedures): Not Applicable
Update Note
Update Note:
CT demonstrates 5 mm calcification in the distal right ureter suggestive of kidney stone. There is mild hydronephrosis. No infection in the urine. Patient much more comfortable after hydration and pain management. No indication for admission.
Will discharge with pain management and urology follow-up
ED Attending Note
-
Portions of this chart may have been created with voice recognition software.� Occasional wrong word or��sound alike� substitutions may have occurred due to the inherent limitations of voice recognition software.
Discharge Plan
Departure
Patient Disposition: Home (Routine Discharge)
Date of Disposition: 01/04/25
Time of Disposition: 13:50
Patient with high blood pressure during this ER visit?: No
Discharge Problem:
Kidney stone
Instructions: Kidney stones in adults
Prescriptions:
New
tamsulosin [Flomax] 0.4 mg capsule
0.4 mg PO DAILY Qty: 14 0RF
oxycodone-acetaminophen [Percocet] 5-325 mg tablet
1 tab PO Q6HPRN PRN (Reason: pain) Qty: 10 0RF
No Action
multivitamin Tablet
1 tab PO DAILY
valacyclovir 500 mg Tablet
500 mg PO DAILY
metoprolol succinate 25 mg Tablet Extended Release 24 Hr
25 mg PO HS
loratadine [Claritin] 10 mg Tablet
10 mg PO DAILY
cholecalciferol (vitamin D3) [Vitamin D3] 125 mcg (5,000 unit) Tablet
125 mcg PO DAILY
Prolia 60 mg/mL Syringe
60 mg SC [id number]
Patient Comments:
02/15/2024, pt. is due for next dose on Saturday (02/21/2024) per pt.
PreserVision AREDS 4,296 mcg-226 mg-90 mg Capsule
1 cap PO DAILY
inulin-sorbitol 2 gram Tablet,Chewable
1 tab PO DAILY
gabapentin 100 mg Capsule
200 mg PO HS Qty: 60 0RF
sennosides-docusate sodium [Stool Softener-Stimulant Laxat] 8.6-50 mg Tablet
1 tab PO BIDPRN PRN (Reason: constipation) Qty: 0 0RF
pantoprazole 40 mg Tablet,Delayed Release (Dr/Ec)
40 mg PO DAILY Qty: 30 0RF
oxycodone 5 mg Tablet
5 mg PO Q4HPRN PRN (Reason: MODERATE PAIN) Qty: 30 0RF
docusate sodium 100 mg Capsule
100 mg PO BID Qty: 60 0RF
lubiprostone 24 mcg Capsule
24 mcg PO BID Qty: 30 0RF
Referrals:
Benjamin Delong MD [Active] -
Jeb Armas DO [Family Provider] -
Activity Restrictions/Additional Instructions:
Drink plenty fluids. Continue with pain medicine nausea medicine and Flomax. Return here for increasing pain fever vomiting or other concerning findings. Follow-up with urology
Interventions
Interventions:
*Risk Screen - Suicide Last Done: 01/04/25 11:33
*General Assessment Last Done: 01/04/25 11:33
*Neglect/Abuse Screening Last Done: 01/04/25 11:33
NE-Zvdxyg-Ywthlvzajr Assessment Last Done: 01/04/25 10:34
Discharge Date and Time
Print Language: BULGARIAN
[2025-01-04] MEDS: NSS 1000 IV (10:29)
[2025-01-04] MEDS: TORADOL 15 MG IV (10:29)
[2025-01-04 10:30] VITALS: BMI 22.5
[2025-01-04] MEDS: ZOFRAN 4 MG IV (10:30)
[2025-01-04] MEDS: DILAUDID 0.5 MG IV (10:44)
[2025-01-04 10:45] LABS: % Basophils 0.6 % (0-2); % Eosinophils 1.9 % (0-6); % Immature Granulocytes 0.2 % (0-0.5); % Lymphocytes 12.8 % (20.5-51.1); % Monocytes 6.4 % (1.7-9.3); % Neutrophils 78.1 % (42.2-75.2); Absolute Basophils 0.1 10^3/uL (0-0.2); Absolute Eosinophils 0.2 10^3/uL (0-0.7); Absolute Lymphocytes 1.2 10^3/uL (1.2-3.4); Absolute Monocytes 0.6 10^3/uL (0.1-0.6); Absolute Neutrophils 7.5 10^3/uL (1.4-6.5); Hemoglobin 13.6 g/dL (12.0-16.0); Mean Corp Hgb Conc. 35.8 g/dL (33.0-37.0); Mean Corpuscular Hgb 34.3 pg (27.0-31.0); Mean Corpuscular Volume 95.7 fL (81.0-99.0); Mean Platelet Volume 8.9 fL (7.4-10.4); Nucleated Red Blood Cells % 0 %; Platelet Count 288 10^3/uL (130-400); Red Blood Cell Count 3.97 10^6/uL (4.20-5.40); Red Cell Dist. Width 13.1 % (11.5-14.5); White Blood Cell Count 9.5 10^3/uL (4.8-10.8)
[2025-01-04 11:00] LABS: ALT (SGPT) 23 U/L (0-35); AST (SGOT) 32 U/L (14-36); Albumin 4.9 g/dl (3.5-5.0); Alkaline Phosphatase 83 U/L (38-126); Blood Urea Nitrogen 22 mg/dl (7-17); Calcium 9.9 mg/dl (8.4-10.2); Carbon Dioxide 20 mmol/L (22-30); Chloride 103 mmol/L (98-107); Estimated Creatinine Clearance 74 ml/min; Glucose 139 mg/dl (70-99); Potassium 3.8 mmol/L (3.5-5.1); Sodium 137 mmol/L (135-145); Total Bilirubin 1.1 mg/dl (0.2-1.3); eGFR > 60.00
[2025-01-04 11:26] VITALS: BP 117/74
[2025-01-04 12:17] LABS: Urine Albumin 1+ (Neg - Trace); Urine Bilirubin Negative (Negative); Urine Character Clear (Clear); Urine Color Yellow; Urine Glucose Negative (Negative); Urine Ketone 2+ (Negative); Urine Leukocyte Negative (Negative); Urine Nitrite Negative (Negative); Urine Occult Blood 4+ (Negative); Urine Urobilinogen Negative (Neg - 1+)
[2025-01-04 12:27] LABS: Urine Amorphous Seen; Urine Red Blood Cell 30-40 /HPF (0-2); Urine Squamous Cell 0-2 /LPF (Few)
[2025-01-04 12:28] LABS: Urine White Cell 0-2 /HPF (0-5)
== END 2025-01-04 14:27 | disposition home or self-care (01) ==
LOC: EMR 10:02
PROVIDERS: Physician Assistant; EMERGENCY PHYSICIAN Student in an Organized Health Care Education/Training Program; FAMILY PHYSICIAN Family Medicine
DX: N20.0 Calculus of kidney (principal); I10 Essential (primary) hypertension; I47.10 Supraventricular tachycardia, unspecified; K51.90 Ulcerative colitis, unspecified, without complications; M81.0 Age-related osteoporosis without current pathological fracture; Z85.72 Personal history of non-Hodgkin lymphomas
CPT/HCPCS: 99284; 96374; 96375; 96361; 74177; 80053; 81003; 81015; 85025; Q9967

== ENCOUNTER → 2025-01-22 12:31 | Outpatient (REF) | payer MEDICARE, OTHER, SELFPAY | LOC: SDSPAT 12:31 | PROVIDERS: ATTENDING PHYSICIAN Specialist; FAMILY PHYSICIAN Family Medicine | DX: N20.0 Calculus of kidney (principal) | CPT/HCPCS: 36415; 93005 ==

== ENCOUNTER → 2025-01-27 09:50 | Outpatient (REF) | payer MEDICARE, OTHER, SELFPAY | LOC: HWRAD 09:50 | PROVIDERS: ATTENDING PHYSICIAN Specialist; FAMILY PHYSICIAN Family Medicine | DX: N20.1 Calculus of ureter (principal) | CPT/HCPCS: 74018 ==

== ENCOUNTER 2025-01-28 06:08 | Day surgery (SDC) | payer MEDICARE, OTHER, SELFPAY ==
[2025-01-22 14:04] VITALS: BMI 21.9
[2025-01-28 06:19] VITALS: BP 134/91
[2025-01-28 06:26] VITALS: BMI 21.9
[2025-01-28] MEDS: NORMOSOL-R/PLASMALYTE-A 1000 IV (06:33)
[2025-01-28 07:45] VITALS: BP 105/72; BP 134/91
[2025-01-28] MEDS: Pyridium 200 MG PO (07:53)
[2025-01-28 08:00] VITALS: BP 117/76
[2025-01-28 08:15] VITALS: BP 117/73
[2025-01-28 08:23] VITALS: BP 111/71
[2025-01-28 08:55] VITALS: BP 126/82
== END 2025-01-28 09:10 | disposition home or self-care (01) ==
LOC: SDS 06:08
PROVIDERS: ATTENDING PHYSICIAN Specialist
DX: N20.1 Calculus of ureter (principal)
CPT/HCPCS: 52356; 74018; 76000; 82365; A4300; C2617

== ENCOUNTER 2025-04-09 06:30 | Day surgery (SDC) | payer MEDICARE, OTHER, SELFPAY | END 2025-04-09 13:57 | disposition home or self-care (01) | LOC: GI 06:30 | PROVIDERS: ATTENDING PHYSICIAN Internal Medicine Gastroenterology | DX: K51.90 Ulcerative colitis, unspecified, without complications (principal); K57.30 Diverticulosis of large intestine without perforation or abscess without bleeding; K64.8 Other hemorrhoids | CPT/HCPCS: 45380; 88305 ==